=== PATIENT | female | born 1940 | race Caucasian/White ===

== ENCOUNTER → 2018-01-16 | Outpatient (CLI) | payer MEDICARE, OTHER ==
[~2018-01-16] MED LIST: ALEN70 PO; AMIT10 PO; AMLO5 PO; ASPI81CH PO; CALCAVITDA PO; CALCIUM; CEPH500 PO; CIPR500 PO; CLOP75 PO; Calcium Glucon500 MG PO; DOCU100 PO; ENSURE PO; ERGO50000 PO; HYDACE10B PO; HYDACE5 PO; IBUP600 PO; LEVFLO500 PO; LORA10ER PO; MAGCIT300 PO; METO25ER PO; MOM PO; NAPR500 PO; OXYC5 PO; PHENA200 PO; PROACE100 PO; Percocet 5-3251 EACH PO; RANI150 PO; RXOXYACE PO; RXPHEN200 PO; SIMV40 PO; SULTRIDS PO; TRAM50 PO; VALA500 PO; Valium5 MG PO; WALKER USE
[2018-01-16 10:49] LABS: Appearance, Urine Cloudy (Clear); Bilirubin, Urine Neg (Neg); Blood, Urine Neg (Neg); Color, Urine Yellow (P-Yellow); Glucose Qualitative, Urine Neg (Normal); Ketones, Urine Neg (Neg); Leukocyte Esterase, Urine Neg (Neg); Nitrite, Urine Pos (Neg); Protein, Urine Neg (Neg); Specific Gravity, Urine 1.015 (1.003-1.022); Urobilinogen, Urine NORM (Normal); pH, Urine 6.5 (5.0-8.0)
[2018-01-16 10:57] LABS: Bacteria Few /hpf; Red Blood Cells, Urine Not Seen /hpf (0-2); Squamous Epithelial Cells Rare /hpf (Few); White Blood Cells, Urine Not Seen /hpf (0-5)
== END | disposition home or self-care (01) ==
LOC: LAB EV 08:00
PROVIDERS: Physician Assistant
DX: R30.0 Dysuria (principal)
CPT/HCPCS: 81001; 87077; 87086; 87186

== ENCOUNTER 2018-04-06 14:50 | Inpatient (IN) | payer MEDICARE, OTHER ==
[~2018-04-06] VITALS: Ht 152.4 cm; Wt 42.6 kg
[~2018-04-06 14:50] MED LIST changes: +CHOL10002 PO; -ERGO50000 PO; +LORATADINE PO
[2018-04-06 15:31] LABS: Influenza A Negative (NEGATIVE); Influenza B Negative (NEGATIVE)
[2018-04-06 15:43] LABS: BASOPHILS ABSOLUTE AUTO 0.03 K/mm3 (0.00-0.23); BASOPHILS PERCENT AUTO 0 % (0-2); EOSINOPHILS PERCENT AUTO 0 % (0-6); Hematocrit 43.4 % (33.0-51.0); Hemoglobin 14.4 g/dL (11.5-16.0); IMMATURE GRAN ABSOLUTE AUTO 0.03 K/mm3 (0.00-0.10); IMMATURE GRAN PERCENT AUTO 0 % (0-1); LYMPHOCYTES ABSOLUTE AUTO 0.47 K/mm3 (0.84-5.20); LYMPHOCYTES PERCENT AUTO 4 % (21-46); MONOCYTES ABSOLUTE AUTO 0.95 K/mm3 (0.16-1.47); MONOCYTES PERCENT AUTO 9 % (4-13); Mean Corpuscular HGB Conc 33.2 g/dL (31.5-36.5); Mean Corpuscular Volume 93 fL (80-100); Mean Platelet Volume 10.3 fL (9.1-12.4); NEUTROPHILS ABSOLUTE AUTO 9.53 K/mm3 (1.96-9.15); NEUTROPHILS PERCENT AUTO 87 % (41-73); Platelet Count 121 K/mm3 (150-400); RDW Coefficient Variation 14.1 % (11.7-14.2); RDW Standard Deviation 48.6 fL (35.1-46.3); Red Blood Cell Count 4.65 M/mm3 (3.80-5.20); White Blood Cell Count 11.01 K/mm3 (4.00-11.30)
[2018-04-06 15:59] LABS: Alanine Aminotransfer (ALT/SGP 17 U/L (12-78); Albumin/Globulin Ratio 0.7 (0.8-1.8); Alk Phos 90 U/L (50-136); Anion Gap 11 mmol/L (6-16); Aspartate Aminotrans (AST/SGOT 13 U/L (12-37); Bilirubin, Total 1.4 mg/dL (0.1-1.0); Blood Urea Nitrogen 14 mg/dL (8-24); Bun/Creatinine Ratio 15.6 (12.0-20.0); CO2, Blood 22 mmol/L (21-32); Calcium, Blood 9.7 mg/dL (8.5-10.1); Chloride, Blood 101 mmol/L (98-108); Globulin, Blood 4.2 g/dL (2.2-4.0); Glomerular Filtration Rate >60 (60-); Glucose, Blood 119 mg/dL (70-99); Potassium, Blood 3.9 mmol/L (3.5-5.5); Sodium, Blood 134 mmol/L (136-145); Total Protein, Blood 7.2 g/dL (6.4-8.2)
[2018-04-06 17:07] LABS: Source, Urine Clean Catch
[2018-04-06 17:23] LABS: Appearance, Urine Clear (Clear); Bilirubin, Urine Neg (Neg); Blood, Urine 3+ (Neg); Color, Urine Yellow (P-Yellow); Glucose Qualitative, Urine Neg (Neg); Ketones, Urine Neg (Neg); Leukocyte Esterase, Urine 3+ (Neg); Nitrite, Urine Pos (Neg); Protein, Urine 2+ (Neg); Specific Gravity, Urine 1.015 (1.003-1.022); Urobilinogen, Urine NORM (Normal)
[2018-04-06 17:33] LABS: Bacteria Many /hpf; Red Blood Cells, Urine 0-2 /hpf (0-2); Squamous Epithelial Cells Rare /hpf (Few)
--- NOTE | 2018-04-06 21:37 | NUR ---
CHANGE IN PT *LATE ENTRY* ROUGHLY @2052 I CAME INTO PT ROOM SHE WAS SHIVERING, DIAPHORETIC, & MORE CONFUSED THAN EARLIER THIS EVENING. SHE WAS UNAWARE TO WHY SHE WAS IN THE HOSPITAL BUT COULD STATE NAME, MONTH, AND WHERE SHE WAS. SHE REPORTED FEELING AGITATED, CONFUSED & RESTLESS. VEW SCORE WAS A 4. APICAL HR 118, BP 149/77, TEMP 99.9 & RR 18. PT WAS ALSO VERY WEAK & UNABLE TO DIAMOND PICKER ONTO WATER CUP OR MEDICATION CUP. NOTIFIED DANIELLE ROUGHLY @ 2129 OF CHANGE IN PT CONDITION. HE ORDERED BOLUS LR & TELE FOR THE MOMENT. CAME BACK INTO ROOM TO RECHECK VITALS & VEW SCORE IS NOW A 2.
--- NOTE | 2018-04-07 04:41 | NUR ---
SHIFT SUMMARY ROUGHLY AROUND 2129 I WENT INTO PTS ROOM & PT WAS MORE CONFUSED, DIAPHORETIC, AGITATED & RESTLESS THAN WHEN I INITIALLY MET PT @BEGINNING OF SHIFT, SEE PREVIOUS NOTE. THIS AM PT REPORTS SHE SLEPT WELL. AOX4. DENIES SOB, N/V OR ANY PAIN AT THIS TIME. PT IS CLAMMY & DIAPHORETIC W/O FEVER. BP THIS AM IS 88/49 BUT PT WAS SLEEPING JUST BEFORE IT WAS CHECKED & DENIES ANY DISCOMFORT, PLUS VEW SCORE IS ONLY 1, HOWEVER WILL RECHECK BP. CALL LIGHT IS IN REACH & BED IS IN LOWEST POSITION.
[2018-04-07 04:57] LABS: BASOPHILS ABSOLUTE AUTO 0.02 K/mm3 (0.00-0.23); BASOPHILS PERCENT AUTO 0 % (0-2); EOSINOPHILS PERCENT AUTO 0 % (0-6); Hematocrit 35.2 % (33.0-51.0); Hemoglobin 11.7 g/dL (11.5-16.0); IMMATURE GRAN ABSOLUTE AUTO 0.08 K/mm3 (0.00-0.10); IMMATURE GRAN PERCENT AUTO 1 % (0-1); LYMPHOCYTES ABSOLUTE AUTO 0.71 K/mm3 (0.84-5.20); LYMPHOCYTES PERCENT AUTO 7 % (21-46); MONOCYTES PERCENT AUTO 10 % (4-13); Mean Corpuscular HGB 30.7 pg (26.0-34.0); Mean Corpuscular HGB Conc 33.2 g/dL (31.5-36.5); Mean Corpuscular Volume 92 fL (80-100); Mean Platelet Volume 10.7 fL (9.1-12.4); NEUTROPHILS ABSOLUTE AUTO 8.75 K/mm3 (1.96-9.15); NEUTROPHILS PERCENT AUTO 83 % (41-73); Platelet Count 101 K/mm3 (150-400); RDW Coefficient Variation 14.2 % (11.7-14.2); RDW Standard Deviation 48.1 fL (35.1-46.3); Red Blood Cell Count 3.81 M/mm3 (3.80-5.20); White Blood Cell Count 10.56 K/mm3 (4.00-11.30)
[2018-04-07 05:16] LABS: Bun/Creatinine Ratio 16.4 (12.0-20.0); Calcium, Blood 8.8 mg/dL (8.5-10.1); Creatinine, Blood 0.98 mg/dL (0.40-1.00); Potassium, Blood 3.8 mmol/L (3.5-5.5)
--- NOTE | 2018-04-07 18:04 | NUR ---
SUMMARY PT AWAKE IN BED WATCHING TV, PT JUST FINISHED HER DINNER, PT HAS BEEN PLEASANT AND COOPERATIVE WITH CARE, INDEPENDENT IN THE ROOM, PT HAS HAD SEVERAL FAMILY MEMBERS COME TO VISIT TODAY, PT STATES SHE FEELS BETTER THAN WHEN ADMITTED, VSS, NO ACUTE CHANGES, WILL CONT TO MONITOR
--- NOTE | 2018-04-08 04:33 | NUR ---
SHIFT SUMMARY NO ACUTE CHANGES NOTED SO FAR THIS SHIFT. PT IS ALERT, ORIENTED, PLEASENT AND COOPERATIVE WITH CARE. 1 PERSON STAND BY ASSIST TO BR FOR TOILETING. PT DID INITIALLY VOICE THAT SHE WAS HAVING A DIFFICULT TIME FALLING ASLEEP. WE CLOSED HER DOOR AND SHE WAS ABLE TO FALL ASLEEP QUICKLY. SHE HAS APPEARED TO SLEEP COMFORTABLY MOST OF THE NIGHT, EASILY AWAKENS FOR CARE, NO APPARENT SIGNS OF ACUTE DISTRESS. ABLE TO MAKE NEEDS KNOWN AND CALL LIGHT IN REACH.
--- NOTE | 2018-04-08 10:34 | NUR ---
pt says she is to weak and tired.
--- NOTE | 2018-04-09 05:13 | NUR ---
SHIFT SUMMARY A/O X4, ABLE TO MAKE NEEDS KNOWN. COOPERATIVE WITH CARE. CALLS AND ANSWERS QUESTIONS APPROPRIATELY. NO C/O PAIN/DISCOMFORT. APPEARED TO REST MOST OF SHIFT. VSS/AFEBRILE. NO ACUTE CHANGES OVERNIGHT. BED IN LOWEST POSITION. CALL LIGHT AND BELONGINGS WITHIN REACH. WCTM. REPORT TO ONCOMING RN.
[2018-04-09] MEDS ORDERED: LEVO750 PO (15:29)
[2018-04-09] MEDS ORDERED: CINA30 PO (15:30)
--- NOTE | 2018-04-09 17:57 | NUR ---
DISCHARGE NOTE PT DISCHARGED AT 1620 HRS. PT PROVIDED WITH HARDCOPY AND VERBAL INFORMATION ABOUT DIAGNOSES, MEDICATIONS, FOLLOW UP INSTRUCTIONS. PT'S PRESCRIPTIONS FAXED TO PREFERED PHARMACY. IV DC'D WNL. PT DRESSED WITH HER SISTER'S ASSISTANCE. PT ESCORTED OUT VIA WHEELCHAIR BY SHARE HOLDER. PT HAD NO FURTHER QUESTIONS.
== END 2018-04-09 16:27 | disposition home or self-care (01) | DRG 872 ==
LOC: ER 14:50 → MEDS 14:51
PROVIDERS: Physician Assistant; ADMIT Hospitalist
DX: A41.51 Sepsis due to Escherichia coli [E. coli] (principal); N39.0 Urinary tract infection, site not specified; R65.20 Severe sepsis without septic shock; I95.9 Hypotension, unspecified; E05.00 Thyrotoxicosis with diffuse goiter without thyrotoxic crisis or storm; N18.3 Chronic kidney disease, stage 3 (moderate); R63.0 Anorexia; E21.0 Primary hyperparathyroidism; I12.9 Hypertensive chronic kidney disease with stage 1 through stage 4 chronic kidney disease, or unspecified chronic kidney disease; E78.5 Hyperlipidemia, unspecified; Z79.899 Other long term (current) drug therapy; Z86.73 Personal history of transient ischemic attack (TIA), and cerebral infarction without residual deficits; Z79.01 Long term (current) use of anticoagulants; F17.210 Nicotine dependence, cigarettes, uncomplicated; Z28.20 Immunization not carried out because of patient decision for unspecified reason
CPT/HCPCS: 36415; 74176; 80048; 80053; 81001; 83605; 85025; 87040; 87077; 87086; 87186; 87804; 93005; 93010; 96361; 96365; 96375; 99285-25; G0378; J0696; J0744; J1650; J2405; J7030; J7120

== ENCOUNTER → 2018-05-07 | Outpatient (CLI) | payer MEDICARE, OTHER ==
[~2018-05-07] MED LIST changes: +CINA30 PO; +LEVO750 PO
[2018-05-07 12:34] LABS: Source, Urine Clean Catch
[2018-05-07 12:38] LABS: Appearance, Urine Clear (Clear); Bilirubin, Urine Neg (Neg); Blood, Urine Neg (Neg); Color, Urine Yellow (P-Yellow); Glucose Qualitative, Urine Neg (Normal); Ketones, Urine Neg (Neg); Leukocyte Esterase, Urine Neg (Neg); Nitrite, Urine Neg (Neg); Protein, Urine Neg (Neg); Urobilinogen, Urine NORM (Normal)
[2018-05-07 14:42] LABS: Protein, Urine Random 17.9 mg/dL (0.0-11.9)
== END | disposition home or self-care (01) ==
LOC: LAB EV 10:09 → EDSTATUS 10:19
PROVIDERS: Internal Medicine
DX: N18.2 Chronic kidney disease, stage 2 (mild) (principal); E87.6 Hypokalemia
CPT/HCPCS: 81003; 82570; 84156

== ENCOUNTER 2018-06-27 10:48 | Inpatient (IN) | payer MEDICARE, OTHER ==
[~2018-06-27] VITALS: Ht 152.4 cm; Wt 44.3 kg
[2018-06-27] MEDS ORDERED: POTCHL10ER PO (11:29)
[2018-06-27 11:36] LABS: BASOPHILS ABSOLUTE AUTO 0.05 K/mm3 (0.00-0.23); BASOPHILS PERCENT AUTO 0 % (0-2); EOSINOPHILS ABSOLUTE AUTO 0.05 K/mm3 (0.00-0.68); EOSINOPHILS PERCENT AUTO 0 % (0-6); Hematocrit 44.8 % (33.0-51.0); Hemoglobin 14.5 g/dL (11.5-16.0); IMMATURE GRAN ABSOLUTE AUTO 0.03 K/mm3 (0.00-0.10); IMMATURE GRAN PERCENT AUTO 0 % (0-1); LYMPHOCYTES ABSOLUTE AUTO 1.32 K/mm3 (0.84-5.20); LYMPHOCYTES PERCENT AUTO 11 % (21-46); MONOCYTES ABSOLUTE AUTO 0.82 K/mm3 (0.16-1.47); MONOCYTES PERCENT AUTO 7 % (4-13); Mean Corpuscular HGB 30.3 pg (26.0-34.0); Mean Corpuscular HGB Conc 32.4 g/dL (31.5-36.5); Mean Corpuscular Volume 94 fL (80-100); Mean Platelet Volume 9.9 fL (9.1-12.4); NEUTROPHILS ABSOLUTE AUTO 10.12 K/mm3 (1.96-9.15); NEUTROPHILS PERCENT AUTO 82 % (41-73); Platelet Count 189 K/mm3 (150-400); RDW Standard Deviation 52.5 fL (35.1-46.3); Red Blood Cell Count 4.79 M/mm3 (3.80-5.20); White Blood Cell Count 12.39 K/mm3 (4.00-11.30)
[2018-06-27 11:57] LABS: Alanine Aminotransfer (ALT/SGP 18 U/L (12-78); Albumin, Blood 3.4 g/dL (3.4-5.0); Albumin/Globulin Ratio 0.8 (0.8-1.8); Alk Phos 87 U/L (50-136); Anion Gap 8 mmol/L (6-16); Aspartate Aminotrans (AST/SGOT 18 U/L (12-37); Bilirubin, Total 1.5 mg/dL (0.1-1.0); Blood Urea Nitrogen 15 mg/dL (8-24); Bun/Creatinine Ratio 20.5 (12.0-20.0); CO2, Blood 25 mmol/L (21-32); Calcium, Blood 9.9 mg/dL (8.5-10.1); Chloride, Blood 105 mmol/L (98-108); Creatinine, Blood 0.73 mg/dL (0.40-1.00); Globulin, Blood 4.1 g/dL (2.2-4.0); Glomerular Filtration Rate >60 (60-); Glucose, Blood 95 mg/dL (70-99); Potassium, Blood 4.2 mmol/L (3.5-5.5); Sodium, Blood 138 mmol/L (136-145); Total Protein, Blood 7.5 g/dL (6.4-8.2)
[2018-06-27] MEDS ORDERED: ALLERGY MEDICAT25 MG PO (13:59)
[2018-06-27 17:32] LABS: Influenza A Negative (NEGATIVE); Influenza B Negative (NEGATIVE)
[2018-06-27 17:34] LABS: PCO2 Arterial 35.6 mmHg (35-45); PO2 Arterial 59.3 mmHg (80-100); pH Blood Arterial 7.39 (7.35-7.45)
--- NOTE | 2018-06-27 19:13 | NUR ---
NO C/O AT THIS TIME. DENIES SOB OR OTHER C/O. TOLERATING PO WELL. UP INDEPENDENTLY IN ROOM, STEADY. DISCUSSED PLAN OF CARE WITH PATIENT. FAMILY IN TO SEE.
[2018-06-27 19:31] LABS: Source, Urine Clean Catch
[2018-06-27 19:48] LABS: Bilirubin, Urine Neg (Neg); Blood, Urine 2+ (Neg); Glucose Qualitative, Urine 2+ (Neg); Ketones, Urine Neg (Neg); Leukocyte Esterase, Urine Neg (Neg); Nitrite, Urine Neg (Neg); Protein, Urine Neg (Neg); Urobilinogen, Urine NORM (Normal)
[2018-06-27 20:48] LABS: Appearance, Urine Hazy (Clear); Bacteria Mod /hpf; Color, Urine Yellow (P-Yellow); Squamous Epithelial Cells Few /hpf (Few); White Blood Cells, Urine 0-2 /hpf (0-5)
[2018-06-27 20:49] LABS: Amorphous Light (0-Heavy)
--- NOTE | 2018-06-28 03:52 | NUR ---
NOC SHIFT SUMMARY PT HAS BEEN PLEASANT, TALKATIVE, AND COOPERATIVE WITH CARE THIS NIGHT. NO CHANGES IN S.S NOTED. PT HAS NOT VOICED ANY CONCERNS. VSS. APPEARS IN NO ACUTE DISTRESS. CURRENLY SLEEPING RESTFULLY WITH 2LNC. RESP HAVE BEEN EVEN AND UNLABORED. WILL CONTINUE TO MONITOR.
[2018-06-28 04:45] LABS: BASOPHILS ABSOLUTE AUTO 0.01 K/mm3 (0.00-0.23); BASOPHILS PERCENT AUTO 0 % (0-2); EOSINOPHILS PERCENT AUTO 0 % (0-6); Hematocrit 41.8 % (33.0-51.0); Hemoglobin 13.7 g/dL (11.5-16.0); IMMATURE GRAN ABSOLUTE AUTO 0.04 K/mm3 (0.00-0.10); IMMATURE GRAN PERCENT AUTO 0 % (0-1); LYMPHOCYTES ABSOLUTE AUTO 0.57 K/mm3 (0.84-5.20); LYMPHOCYTES PERCENT AUTO 5 % (21-46); MONOCYTES PERCENT AUTO 2 % (4-13); Mean Corpuscular HGB 30.1 pg (26.0-34.0); Mean Corpuscular HGB Conc 32.8 g/dL (31.5-36.5); Mean Corpuscular Volume 92 fL (80-100); Mean Platelet Volume 10.4 fL (9.1-12.4); NEUTROPHILS ABSOLUTE AUTO 10.49 K/mm3 (1.96-9.15); NEUTROPHILS PERCENT AUTO 93 % (41-73); Platelet Count 199 K/mm3 (150-400); RDW Coefficient Variation 14.7 % (11.7-14.2); RDW Standard Deviation 50.2 fL (35.1-46.3); Red Blood Cell Count 4.55 M/mm3 (3.80-5.20); White Blood Cell Count 11.31 K/mm3 (4.00-11.30)
[2018-06-28 05:02] LABS: Anion Gap 8 mmol/L (6-16); Blood Urea Nitrogen 25 mg/dL (8-24); Bun/Creatinine Ratio 28.5 (12.0-20.0); CO2, Blood 25 mmol/L (21-32); Calcium, Blood 10.4 mg/dL (8.5-10.1); Chloride, Blood 105 mmol/L (98-108); Creatinine, Blood 0.88 mg/dL (0.40-1.00); Glomerular Filtration Rate >60 (60-); Glucose, Blood 191 mg/dL (70-99); Potassium, Blood 3.8 mmol/L (3.5-5.5); Sodium, Blood 138 mmol/L (136-145)
[2018-06-28] MEDS ORDERED: Loratadine10 MG PO (09:57)
--- NOTE | 2018-06-28 18:39 | NUR ---
SHIFT SUMMARY OX3; TOLERATING ROOM AIR WELL AT TIMES AND 1L NC WITH ACTIVITY. LUNG SOUNDS IMPROVING. INTERMITTENT COUGH SCANT SPUTUM. STANDBY ASSIST. HR 110-120'S. POSSIBLE DC IN A.M.
--- NOTE | 2018-06-29 05:35 | NUR ---
Rn summary: Patient is alert and oriented. Pt breathsounds with no wheezing, just sl courseness in bases. Pt has been on room air and sats have been 92-93%. Pt had difficulty with gong to sleep. She also has sore areas in her mouth where her new dentures have rubbed. Pt given xylocaine jelly which did help, and restaril 15mg. She slept after 0200. Pt llives with her son and plans are for her to be discharged home today. Call light in reach. Condition stable.
[2018-06-29] MEDS ORDERED: AZIT500 PO (13:56)
[2018-06-29] MEDS ORDERED: ROBITUSSIN COU237 ML PO (14:01)
[2018-06-29] MEDS ORDERED: NICO21TP TOP (14:02)
[2018-06-29] MEDS ORDERED: PRED20 PO (14:03)
[2018-06-29] MEDS ORDERED: ALBU90OI INH (14:04)
[2018-06-29] MEDS ORDERED: TIOT18 INH (14:04)
[2018-06-29] MEDS ORDERED: CEFD300 PO (14:04)
[2018-06-29] MEDS ORDERED: BUDE6HFA INH (14:04)
[2018-06-29] MEDS ORDERED: METO50ER PO (14:05)
--- NOTE | 2018-06-29 18:05 | NUR ---
SUMMARY/DISCHARGE PT DISCHARGED TO HOME, PT VERBALIZED UNDERSTANDING OF DISCHARGE INSTRUCTIONS REGARDING FOLLOW UP AND MEDICATIONS, PT TAKEN OUT SAFELY VIA WHEELCHAIR
== END 2018-06-29 17:39 | disposition home or self-care (01) | DRG 189 ==
LOC: ER 10:48 → MEDS 10:49 → ER 14:00 → MEDS 15:38 → ENPENDDIS 06-29 14:51 → MEDS 06-29 17:39
PROVIDERS: Emergency Medicine; Internal Medicine; ADMIT Internal Medicine
DX: J96.01 Acute respiratory failure with hypoxia (principal); J44.1 Chronic obstructive pulmonary disease with (acute) exacerbation; J44.0 Chronic obstructive pulmonary disease with (acute) lower respiratory infection; J20.9 Acute bronchitis, unspecified; E78.5 Hyperlipidemia, unspecified; I65.29 Occlusion and stenosis of unspecified carotid artery; I12.9 Hypertensive chronic kidney disease with stage 1 through stage 4 chronic kidney disease, or unspecified chronic kidney disease; N18.3 Chronic kidney disease, stage 3 (moderate); K21.9 Gastro-esophageal reflux disease without esophagitis; M81.0 Age-related osteoporosis without current pathological fracture; F17.210 Nicotine dependence, cigarettes, uncomplicated; Z86.73 Personal history of transient ischemic attack (TIA), and cerebral infarction without residual deficits; Z79.02 Long term (current) use of antithrombotics/antiplatelets; Z79.899 Other long term (current) drug therapy
CPT/HCPCS: 36415; 36600; 71046; 80048; 80053; 81001; 82803; 83880; 85025; 87086; 87804; 93005; 93010; 94640; 94644; 94760; 96365; 96372; 96374; 96375; 96376; 99285-25; G0378; J0696; J1650; J1940; J2930

== ENCOUNTER → 2018-07-02 | Outpatient (CLI) | payer MEDICARE, OTHER ==
[~2018-07-02] MED LIST changes: +ALBU90OI INH; +ALLERGY MEDICAT25 MG PO; +AZIT500 PO; +BUDE6HFA INH; +CEFD300 PO; +Loratadine10 MG PO; +METO50ER PO; +NICO21TP TOP; +POTCHL10ER PO; +PRED20 PO; +ROBITUSSIN COU237 ML PO; +TIOT18 INH
[2018-07-02 09:27] LABS: Bun/Creatinine Ratio 13.2 (12.0-20.0); Calcium, Blood 9.3 mg/dL (8.5-10.1); Creatinine, Blood 0.91 mg/dL (0.40-1.00); Potassium, Blood 3.9 mmol/L (3.5-5.5)
[2018-07-02 09:30] LABS: BASOPHILS ABSOLUTE AUTO 0.02 K/mm3 (0.00-0.23); BASOPHILS PERCENT AUTO 0 % (0-2); EOSINOPHILS ABSOLUTE AUTO 0.13 K/mm3 (0.00-0.68); EOSINOPHILS PERCENT AUTO 2 % (0-6); Hematocrit 39.9 % (33.0-51.0); Hemoglobin 13.5 g/dL (11.5-16.0); IMMATURE GRAN ABSOLUTE AUTO 0.07 K/mm3 (0.00-0.10); IMMATURE GRAN PERCENT AUTO 1 % (0-1); LYMPHOCYTES ABSOLUTE AUTO 0.85 K/mm3 (0.84-5.20); LYMPHOCYTES PERCENT AUTO 12 % (21-46); MONOCYTES ABSOLUTE AUTO 0.69 K/mm3 (0.16-1.47); MONOCYTES PERCENT AUTO 10 % (4-13); Mean Corpuscular HGB 30.4 pg (26.0-34.0); Mean Corpuscular HGB Conc 33.8 g/dL (31.5-36.5); Mean Corpuscular Volume 90 fL (80-100); NEUTROPHILS ABSOLUTE AUTO 5.27 K/mm3 (1.96-9.15); NEUTROPHILS PERCENT AUTO 75 % (41-73); RDW Coefficient Variation 14.8 % (11.7-14.2); RDW Standard Deviation 48.8 fL (35.1-46.3); Red Blood Cell Count 4.44 M/mm3 (3.80-5.20); White Blood Cell Count 7.03 K/mm3 (4.00-11.30)
[2018-07-02 10:10] LABS: Platelet Count 204 K/mm3 (150-400)
== END | disposition home or self-care (01) ==
LOC: LAB SHORT 09:18 → LAB EV 09:18
PROVIDERS: Physician Assistant
DX: J96.01 Acute respiratory failure with hypoxia (principal)
CPT/HCPCS: 80048; 85025

== ENCOUNTER 2018-12-21 10:40 | Emergency (ER) | payer MEDICARE, OTHER ==
[~2018-12-21] VITALS: Ht 152.4 cm; Wt 45.4 kg
[2018-12-21 11:11] LABS: BASOPHILS ABSOLUTE AUTO 0.05 K/mm3 (0.00-0.23); BASOPHILS PERCENT AUTO 1 % (0-2); EOSINOPHILS ABSOLUTE AUTO 0.18 K/mm3 (0.00-0.68); EOSINOPHILS PERCENT AUTO 4 % (0-6); Hematocrit 45.2 % (33.0-51.0); Hemoglobin 14.7 g/dL (11.5-16.0); IMMATURE GRAN ABSOLUTE AUTO 0.01 K/mm3 (0.00-0.10); IMMATURE GRAN PERCENT AUTO 0 % (0-1); LYMPHOCYTES ABSOLUTE AUTO 1.66 K/mm3 (0.84-5.20); LYMPHOCYTES PERCENT AUTO 33 % (21-46); MONOCYTES ABSOLUTE AUTO 0.46 K/mm3 (0.16-1.47); MONOCYTES PERCENT AUTO 9 % (4-13); Mean Corpuscular HGB 30.6 pg (26.0-34.0); Mean Corpuscular HGB Conc 32.5 g/dL (31.5-36.5); Mean Corpuscular Volume 94 fL (80-100); NEUTROPHILS ABSOLUTE AUTO 2.75 K/mm3 (1.96-9.15); NEUTROPHILS PERCENT AUTO 54 % (41-73); Platelet Count 206 K/mm3 (150-400); RDW Coefficient Variation 14.5 % (11.7-14.2); RDW Standard Deviation 50.6 fL (35.1-46.3); White Blood Cell Count 5.11 K/mm3 (4.00-11.30)
[2018-12-21 11:33] LABS: Alanine Aminotransfer (ALT/SGP 15 U/L (12-78); Albumin, Blood 3.3 g/dL (3.4-5.0); Albumin/Globulin Ratio 0.8 (0.8-1.8); Alk Phos 119 U/L (50-136); Anion Gap 5 mmol/L (6-16); Aspartate Aminotrans (AST/SGOT 13 U/L (12-37); Bilirubin, Total 0.9 mg/dL (0.1-1.0); Blood Urea Nitrogen 11 mg/dL (8-24); Bun/Creatinine Ratio 14.8 (12.0-20.0); CO2, Blood 28 mmol/L (21-32); Calcium, Blood 10.2 mg/dL (8.5-10.1); Chloride, Blood 108 mmol/L (98-108); Creatinine, Blood 0.75 mg/dL (0.40-1.00); Globulin, Blood 4.3 g/dL (2.2-4.0); Glomerular Filtration Rate >60 (60-); Glucose, Blood 112 mg/dL (70-99); Potassium, Blood 3.9 mmol/L (3.5-5.5); Sodium, Blood 141 mmol/L (136-145); Total Protein, Blood 7.6 g/dL (6.4-8.2); Troponin I <0.015 ng/mL (0.000-0.040)
[2018-12-21 12:29] LABS: Appearance, Urine Clear (Clear); Bilirubin, Urine Neg (Neg); Blood, Urine Neg (Neg); Color, Urine Yellow (P-Yellow); Glucose Qualitative, Urine Neg (Neg); Ketones, Urine Neg (Neg); Leukocyte Esterase, Urine Neg (Neg); Nitrite, Urine Neg (Neg); Protein, Urine Neg (Neg); Specific Gravity, Urine 1.005 (1.003-1.022); Urobilinogen, Urine NORM (Normal)
[2018-12-21] MEDS ORDERED: Toprol Xl25 MG PO (12:33)
[2018-12-21] MEDS ORDERED: Medi-Meclizine25 MG PO (12:45)
== END 2018-12-21 13:24 | disposition home or self-care (01) ==
LOC: ER 10:40
PROVIDERS: Emergency Medicine
DX: R42 Dizziness and giddiness (principal); F17.210 Nicotine dependence, cigarettes, uncomplicated; Z86.73 Personal history of transient ischemic attack (TIA), and cerebral infarction without residual deficits; Z79.899 Other long term (current) drug therapy; Z88.5 Allergy status to narcotic agent
CPT/HCPCS: 36415; 70450; 71046; 80053; 81003; 84484; 85025; 93005; 93010; 96361; 96374; 99284-25; J2405; J7030

== ENCOUNTER 2019-03-04 22:29 | Emergency (ER) | payer MEDICARE, OTHER ==
[~2019-03-04] VITALS: Ht 152.4 cm; Wt 49.9 kg
[~2019-03-04 22:29] MED LIST changes: +Medi-Meclizine25 MG PO; +Toprol Xl25 MG PO
== END 2019-03-05 02:15 | disposition home or self-care (01) ==
LOC: ER 22:29
DX: R51 Headache (principal); F17.210 Nicotine dependence, cigarettes, uncomplicated; Z86.73 Personal history of transient ischemic attack (TIA), and cerebral infarction without residual deficits
CPT/HCPCS: 70450; 96372; 99283-25; J1885; Q0163

== ENCOUNTER → 2019-07-05 | Outpatient (CLI) | payer MEDICARE, OTHER | END | disposition home or self-care (01) | LOC: LAB EV 11:51 → LAB SHORT 11:51 | DX: N39.0 Urinary tract infection, site not specified (principal) | CPT/HCPCS: 87077; 87086; 87186 ==

== ENCOUNTER 2019-12-10 20:29 | Emergency (ER) | payer MEDICARE, OTHER ==
[~2019-12-10] VITALS: Ht 152.4 cm; Wt 44.0 kg
[2019-12-10 21:31] LABS: BASOPHILS ABSOLUTE AUTO 0.04 K/mm3 (0.00-0.23); BASOPHILS PERCENT AUTO 1 % (0-2); EOSINOPHILS ABSOLUTE AUTO 0.09 K/mm3 (0.00-0.68); EOSINOPHILS PERCENT AUTO 2 % (0-6); Hematocrit 47.7 % (33.0-51.0); Hemoglobin 16.1 g/dL (11.5-16.0); IMMATURE GRAN ABSOLUTE AUTO 0.01 K/mm3 (0.00-0.10); IMMATURE GRAN PERCENT AUTO 0 % (0-1); LYMPHOCYTES ABSOLUTE AUTO 1.55 K/mm3 (0.84-5.20); LYMPHOCYTES PERCENT AUTO 29 % (21-46); MONOCYTES ABSOLUTE AUTO 0.44 K/mm3 (0.16-1.47); MONOCYTES PERCENT AUTO 8 % (4-13); Mean Corpuscular HGB 32.8 pg (26.0-34.0); Mean Corpuscular HGB Conc 33.8 g/dL (31.5-36.5); Mean Corpuscular Volume 97 fL (80-100); NEUTROPHILS ABSOLUTE AUTO 3.24 K/mm3 (1.96-9.15); NEUTROPHILS PERCENT AUTO 60 % (41-73); Platelet Count 170 K/mm3 (150-400); RDW Coefficient Variation 14.6 % (11.7-14.2); RDW Standard Deviation 51.8 fL (35.1-46.3); Red Blood Cell Count 4.91 M/mm3 (3.80-5.20); White Blood Cell Count 5.37 K/mm3 (4.00-11.30)
[2019-12-10 21:50] LABS: Albumin, Blood 3.7 g/dL (3.4-5.0); Bilirubin, Total 1.5 mg/dL (0.1-1.0); Calcium, Blood 10.5 mg/dL (8.5-10.1); Globulin, Blood 3.8 g/dL (2.2-4.0); Potassium, Blood 4.3 mmol/L (3.5-5.5); Total Protein, Blood 7.5 g/dL (6.4-8.2)
[2019-12-10 23:59] LABS: Source, Urine Clean Catch
[2019-12-11 00:02] LABS: Appearance, Urine Hazy (Clear); Bilirubin, Urine 1+ (Neg); Blood, Urine 1+ (Neg); Color, Urine Yellow (P-Yellow); Glucose Qualitative, Urine Neg (Neg); Ketones, Urine 1+ (Neg); Leukocyte Esterase, Urine 3+ (Neg); Nitrite, Urine Neg (Neg); Protein, Urine 2+ (Neg); Urobilinogen, Urine 2+ (Normal)
[2019-12-11 00:09] LABS: Bacteria Many /hpf; Red Blood Cells, Urine Rare /hpf (0-2); Squamous Epithelial Cells Few /hpf (Few); White Blood Cells, Urine TNTC /hpf (0-5); Yeast/Fungi Urine Few /hpf
[2019-12-11] MEDS ORDERED: CEFP200 PO (00:36)
== END 2019-12-11 01:00 | disposition home or self-care (01) ==
LOC: ER 20:29
PROVIDERS: Emergency Medicine; Physician Assistant
DX: N39.0 Urinary tract infection, site not specified (principal); Z88.5 Allergy status to narcotic agent; Z79.899 Other long term (current) drug therapy; J44.9 Chronic obstructive pulmonary disease, unspecified; K21.9 Gastro-esophageal reflux disease without esophagitis; Z86.73 Personal history of transient ischemic attack (TIA), and cerebral infarction without residual deficits; I12.9 Hypertensive chronic kidney disease with stage 1 through stage 4 chronic kidney disease, or unspecified chronic kidney disease; N18.3 Chronic kidney disease, stage 3 (moderate); E78.5 Hyperlipidemia, unspecified; F17.210 Nicotine dependence, cigarettes, uncomplicated
CPT/HCPCS: 36415; 71046; 80053; 81001; 83690; 85025; 96361; 96365; 99285-25; J0696; J7030

== ENCOUNTER → 2020-05-29 | Outpatient (CLI) | payer MEDICARE, OTHER ==
[~2020-05-29] MED LIST changes: +CEFP200 PO
[2020-05-29 12:00] LABS: BASOPHILS ABSOLUTE AUTO 0.07 K/mm3 (0.00-0.23); BASOPHILS PERCENT AUTO 1 % (0-2); EOSINOPHILS ABSOLUTE AUTO 0.43 K/mm3 (0.00-0.68); EOSINOPHILS PERCENT AUTO 8 % (0-6); Hematocrit 46.3 % (33.0-51.0); Hemoglobin 15.4 g/dL (11.5-16.0); IMMATURE GRAN ABSOLUTE AUTO 0.02 K/mm3 (0.00-0.10); IMMATURE GRAN PERCENT AUTO 0 % (0-1); LYMPHOCYTES ABSOLUTE AUTO 1.25 K/mm3 (0.84-5.20); LYMPHOCYTES PERCENT AUTO 22 % (21-46); MONOCYTES PERCENT AUTO 7 % (4-13); Mean Corpuscular HGB 31.6 pg (26.0-34.0); Mean Corpuscular HGB Conc 33.3 g/dL (31.5-36.5); Mean Corpuscular Volume 95 fL (80-100); NEUTROPHILS ABSOLUTE AUTO 3.43 K/mm3 (1.96-9.15); NEUTROPHILS PERCENT AUTO 61 % (41-73); Platelet Count 164 K/mm3 (150-400); RDW Coefficient Variation 14.8 % (11.7-14.2); RDW Standard Deviation 51.5 fL (35.1-46.3); Red Blood Cell Count 4.87 M/mm3 (3.80-5.20)
[2020-05-29 12:11] LABS: Albumin, Blood 3.6 g/dL (3.4-5.0); Albumin/Globulin Ratio 0.9 (0.8-1.8); Bun/Creatinine Ratio 10.2 (12.0-20.0); Calcium, Blood 10.7 mg/dL (8.5-10.1); Creatinine, Blood 0.98 mg/dL (0.40-1.00); Globulin, Blood 4.2 g/dL (2.2-4.0); Potassium, Blood 3.7 mmol/L (3.5-5.5); Total Protein, Blood 7.8 g/dL (6.4-8.2); Uric Acid, Blood 4.3 mg/dL (2.6-6.0)
== END | disposition home or self-care (01) ==
LOC: LAB SHORT 11:55 → PLD 11:55
PROVIDERS: General Practice
DX: M79.671 Pain in right foot (principal)
CPT/HCPCS: 80053; 84550; 85025; 85651

== ENCOUNTER 2021-04-12 18:36 | Inpatient (IN) | payer MEDICARE, OTHER ==
[~2021-04-12] VITALS: Ht 152.4 cm; Wt 40.3 kg
[2021-04-12 19:15] LABS: BASOPHILS ABSOLUTE AUTO 0.01 K/mm3 (0.00-0.23); BASOPHILS PERCENT AUTO 1 % (0-2); EOSINOPHILS PERCENT AUTO 0 % (0-6); Hemoglobin 14.5 g/dL (11.5-16.0); IMMATURE GRAN ABSOLUTE AUTO 0.01 K/mm3 (0.00-0.10); IMMATURE GRAN PERCENT AUTO 1 % (0-1); LYMPHOCYTES ABSOLUTE AUTO 0.51 K/mm3 (0.84-5.20); LYMPHOCYTES PERCENT AUTO 25 % (21-46); MONOCYTES ABSOLUTE AUTO 0.24 K/mm3 (0.16-1.47); MONOCYTES PERCENT AUTO 12 % (4-13); Mean Corpuscular HGB 34.4 pg (26.0-34.0); Mean Corpuscular HGB Conc 34.5 g/dL (31.5-36.5); Mean Corpuscular Volume 100 fL (80-100); Mean Platelet Volume 10.3 fL (9.1-12.4); NEUTROPHILS PERCENT AUTO 63 % (41-73); Platelet Count 87 K/mm3 (150-400); RDW Standard Deviation 54.9 fL (35.1-46.3); Red Blood Cell Count 4.22 M/mm3 (3.80-5.20); White Blood Cell Count 2.07 K/mm3 (4.00-11.30)
[2021-04-12 19:34] LABS: Albumin, Blood 3.2 g/dL (3.4-5.0); Albumin/Globulin Ratio 0.9 (0.8-1.8); Bilirubin, Total 0.5 mg/dL (0.1-1.0); Bun/Creatinine Ratio 25.9 (12.0-20.0); Calcium, Blood 8.8 mg/dL (8.5-10.1); Creatinine, Blood 0.97 mg/dL (0.40-1.00); Globulin, Blood 3.4 g/dL (2.2-4.0); Potassium, Blood 4.1 mmol/L (3.5-5.5); Total Protein, Blood 6.6 g/dL (6.4-8.2)
[2021-04-12] MEDS ORDERED: ATOR40TA PO (23:04)
[2021-04-13] MEDS ORDERED: MELA3 PO (02:10)
[2021-04-13 02:48] LABS: BASOPHILS ABSOLUTE AUTO 0.01 K/mm3 (0.00-0.23); BASOPHILS PERCENT AUTO 1 % (0-2); EOSINOPHILS PERCENT AUTO 0 % (0-6); Hematocrit 39.3 % (33.0-51.0); Hemoglobin 13.5 g/dL (11.5-16.0); IMMATURE GRAN ABSOLUTE AUTO 0.01 K/mm3 (0.00-0.10); IMMATURE GRAN PERCENT AUTO 1 % (0-1); LYMPHOCYTES ABSOLUTE AUTO 0.54 K/mm3 (0.84-5.20); LYMPHOCYTES PERCENT AUTO 28 % (21-46); MONOCYTES ABSOLUTE AUTO 0.12 K/mm3 (0.16-1.47); MONOCYTES PERCENT AUTO 6 % (4-13); Mean Corpuscular HGB Conc 34.4 g/dL (31.5-36.5); Mean Corpuscular Volume 99 fL (80-100); Mean Platelet Volume 9.6 fL (9.1-12.4); NEUTROPHILS ABSOLUTE AUTO 1.27 K/mm3 (1.96-9.15); NEUTROPHILS PERCENT AUTO 65 % (41-73); Platelet Count 73 K/mm3 (150-400); RDW Coefficient Variation 14.8 % (11.7-14.2); RDW Standard Deviation 54.2 fL (35.1-46.3); Red Blood Cell Count 3.97 M/mm3 (3.80-5.20); White Blood Cell Count 1.95 K/mm3 (4.00-11.30)
[2021-04-13 03:25] LABS: Alanine Aminotransfer (ALT/SGP 23 U/L (12-78); Albumin, Blood 2.8 g/dL (3.4-5.0); Albumin/Globulin Ratio 0.9 (0.8-1.8); Alk Phos 61 U/L (50-136); Anion Gap 8 mmol/L (6-16); Aspartate Aminotrans (AST/SGOT 42 U/L (12-37); Bilirubin, Total 0.4 mg/dL (0.1-1.0); Blood Urea Nitrogen 20 mg/dL (8-24); Bun/Creatinine Ratio 22.6 (12.0-20.0); CO2, Blood 22 mmol/L (21-32); Calcium, Blood 7.8 mg/dL (8.5-10.1); Chloride, Blood 105 mmol/L (98-108); Creatinine, Blood 0.89 mg/dL (0.40-1.00); Globulin, Blood 3.2 g/dL (2.2-4.0); Glomerular Filtration Rate >60 (60-); Glucose, Blood 87 mg/dL (70-99); Potassium, Blood 4.1 mmol/L (3.5-5.5); Sodium, Blood 135 mmol/L (136-145)
--- NOTE | 2021-04-13 05:20 | NUR ---
SHIFT SUMMARY: PT ADMITTED FROM ER AT APPROX 0200. PT A&O X4. FEBRILE UPON ARRIVAL WITH TMAX 101.2. MOST RECENT TEMP 99.5. COVID POSITIVE. REMDESIVIR GIVEN PER EMAR. LUNGS CLEAR T/O, DIMINISHED IN BASES. PT WEANED FROM 6LO2 TO 1LO2. O2 CURRENTLY >93%. PT DENIES DIFFICULTY BREATHING. OCC CONGESTED NONPRODUCTIVE COUGH. PE STUDY COMPLETE AND RESULTS PLACED IN CHART.
--- NOTE | 2021-04-13 11:07 | NUR ---
PT. SEEN BY DR. GARNICA, VERBAL ORDER RECEIVED TO START PT. ON ROOM AIR NOW & IF SHE CAN TOLERATE WELL WITH WNL O2 SAT, DR. GARNICA WILL DISCHARGE HIM TOMORROW.
--- NOTE | 2021-04-13 11:34 | NUR ---
NO RECORD OF VASCULAR ACCESS FOR ASSESSMENT NOTED, PT. HAS A LEFT AC G 20 SALINE LOCKED, C/D/I & FLUSHED WITH 10 CC SALINE.
--- NOTE | 2021-04-13 13:00 | NUR ---
Initial Interview with [facility] Community Audit Senior Associate 1. Who did you speak with? Spoke with patient 2. What is the patient's prior level of functions? Independent lives with two sons and [id number]. Patient lives in a four bedroom one story home. Patient was able to perform ADL's without much assistance. Home is handicapped accessible. Patient uses a cane when needed (has 2 to 3 canes). Patient self manages her medications. Family members in the home assist with housekeeping and cooking. 3. What is the patient's current living situation? Patient lives independently with 4. Is the patient and/or family able to provide transportation to and from doctor's appointments and pickup driver prescriptions? Yes, patient still drives 5. Does patient still drive? Yes 6. POA/PCP/NOK: NOK: Son Riki Boykin/PCP Dr. Echols 7. Discharge goals: Home -Home: NLT 04/15 -DME: TBD PTOT/RT -Medication Management: self-management -Preferred Pharmacy: July -Housekeeping need: family assists -Cooking: family assists 8. List barriers to discharge: None known at this time 9. Discharge Plan: Plan is to discharge home 10. PCP Follow up appointment: Will be scheduled within seven calendar days of discharge 11. [place]: No
--- NOTE | 2021-04-14 05:01 | NUR ---
PT IS IN BED AT THIS TIME WHERE SHE REMAINS MUCH OF THE NIGHT AND IS RESTING COMFORTABLY. BEING MONITORED FOR FOR HX OF RESPIRATORY FAILURE AND HAS EXHIBITED NO SIGNS OF RESPIRATORY DISTRESS. SHE CONTINUES TO BE ON RM AIR BUT BEING IS ON CONTINUOUS O2 SAT MONITORING. OVERALL CONDITION IS STABLE, VS AT ACCEPTABLE LIMIT, NO C/O PAIN AT THIS TIME. SHE IS ASSISTED WITH HER CARE AND ADLS, ASSISTED WITH BATHROOM AND TOILETING NEEDS. HER CALL LIGHT WAS PLACED NEAR HER AND WAS ENCOURAGED TO CALL FOR HELP WHEN ASSISTANCE IS NEEDED SHE IS MONITORED.
[2021-04-14] MEDS ORDERED: DEXA6 PO (13:08)
[2021-04-14 13:51] LABS: BASOPHILS PERCENT AUTO 0 % (0-2); EOSINOPHILS PERCENT AUTO 0 % (0-6); Hematocrit 39.9 % (33.0-51.0); Hemoglobin 13.6 g/dL (11.5-16.0); IMMATURE GRAN ABSOLUTE AUTO 0.01 K/mm3 (0.00-0.10); IMMATURE GRAN PERCENT AUTO 1 % (0-1); LYMPHOCYTES ABSOLUTE AUTO 0.51 K/mm3 (0.84-5.20); LYMPHOCYTES PERCENT AUTO 26 % (21-46); MONOCYTES ABSOLUTE AUTO 0.09 K/mm3 (0.16-1.47); MONOCYTES PERCENT AUTO 5 % (4-13); Mean Corpuscular HGB 34.8 pg (26.0-34.0); Mean Corpuscular HGB Conc 34.1 g/dL (31.5-36.5); Mean Corpuscular Volume 102 fL (80-100); Mean Platelet Volume 10.6 fL (9.1-12.4); NEUTROPHILS ABSOLUTE AUTO 1.38 K/mm3 (1.96-9.15); NEUTROPHILS PERCENT AUTO 69 % (41-73); Platelet Count 79 K/mm3 (150-400); Red Blood Cell Count 3.91 M/mm3 (3.80-5.20); White Blood Cell Count 1.99 K/mm3 (4.00-11.30)
[2021-04-14 14:12] LABS: Alanine Aminotransfer (ALT/SGP 25 U/L (12-78); Albumin, Blood 2.7 g/dL (3.4-5.0); Albumin/Globulin Ratio 0.8 (0.8-1.8); Alk Phos 63 U/L (50-136); Anion Gap 8 mmol/L (6-16); Aspartate Aminotrans (AST/SGOT 45 U/L (12-37); Bilirubin, Total 0.3 mg/dL (0.1-1.0); Blood Urea Nitrogen 26 mg/dL (8-24); Bun/Creatinine Ratio 34.8 (12.0-20.0); CO2, Blood 22 mmol/L (21-32); Calcium, Blood 8.8 mg/dL (8.5-10.1); Chloride, Blood 108 mmol/L (98-108); Creatinine, Blood 0.75 mg/dL (0.40-1.00); Globulin, Blood 3.2 g/dL (2.2-4.0); Glomerular Filtration Rate >60 (60-); Glucose, Blood 111 mg/dL (70-99); Potassium, Blood 4.5 mmol/L (3.5-5.5); Sodium, Blood 138 mmol/L (136-145); Total Protein, Blood 5.9 g/dL (6.4-8.2)
[2021-04-14] MEDS ORDERED: ALBU90OI INH (14:48)
--- NOTE | 2021-04-14 16:16 | NUR ---
DISCHARGE SUMMARY PT A/O X4 AND SBA IN THE ROOM. LUNG SOUNDS CLEAR BUT DIM T/O. SUPPLEMENTAL O2 PRN BUT THE PT HAS NOT NEEDED IT. FEELING FATIGUED BUT WELL ENOUGH TO DC HOME. IV DC'D WNL. PICKED UP BY SON. ADVISED TO INDEPENDENT [employer] PRODUCER HOME PULSE OX FROM PHARMACY.
--- NOTE | 2021-04-14 16:27 | NUR ---
Per Dr. Galvan discharge appropriate on today, 04/14/21. Spoke with patient and she is aware of discharge and does not oppose. Patient's daughter in law Yina ([phone]) provided transportation to residence. DME: patient has a walker and 2-3 canes. Transition of care will contact patient to schedule hospital PCP follow up; patient is COVID positive and will need a telehealth visit. Patient understands if any health concerns or medication management questions, she may contact her PCP; or if condition worsens go to Urgent Care. Patient states she has a good support network of family and friends. No barriers to discharge at this time.
--- NOTE | 2021-04-14 17:24 | NUR ---
[facility]'S [facility], ATTEMPTED TO CALL IN RX BUT NO ANSWER AFTER BEING ON HOLD FOR 20MINS.
== END 2021-04-14 16:12 | disposition home or self-care (01) | DRG 177 ==
LOC: ER 18:36 → SURS 23:49 → MEDS 23:49 → SURS 04-13 01:32
PROVIDERS: Emergency Medicine; Family Medicine; Internal Medicine; ADMIT Internal Medicine
PROC: 8E0ZXY6 Isolation (ICD-10-PCS; 2021-04-12)
PROC: XW0DXM6 Introduction of Baricitinib into Mouth and Pharynx, External Approach, New Technology Group 6 (ICD-10-PCS; principal; 2021-04-13)
PROC: 3E0DX3Z Introduction of Anti-inflammatory into Mouth and Pharynx, External Approach (ICD-10-PCS; 2021-04-13)
PROC: XW033E5 Introduction of Remdesivir Anti-infective into Peripheral Vein, Percutaneous Approach, New Technology Group 5 (ICD-10-PCS; 2021-04-13)
DX: U07.1 COVID-19 (principal); J12.82 Pneumonia due to coronavirus disease 2019; J96.01 Acute respiratory failure with hypoxia; E87.1 Hypo-osmolality and hyponatremia; J44.0 Chronic obstructive pulmonary disease with (acute) lower respiratory infection; J44.1 Chronic obstructive pulmonary disease with (acute) exacerbation; Z66 Do not resuscitate; D72.819 Decreased white blood cell count, unspecified; D69.6 Thrombocytopenia, unspecified; R79.1 Abnormal coagulation profile; K21.9 Gastro-esophageal reflux disease without esophagitis; E78.5 Hyperlipidemia, unspecified; I12.9 Hypertensive chronic kidney disease with stage 1 through stage 4 chronic kidney disease, or unspecified chronic kidney disease; N18.30 Chronic kidney disease, stage 3 unspecified; M81.0 Age-related osteoporosis without current pathological fracture; F17.210 Nicotine dependence, cigarettes, uncomplicated; Z96.641 Presence of right artificial hip joint; Z88.5 Allergy status to narcotic agent; Z79.899 Other long term (current) drug therapy; Z28.21 Immunization not carried out because of patient refusal; Z86.73 Personal history of transient ischemic attack (TIA), and cerebral infarction without residual deficits; Z98.890 Other specified postprocedural states; Z90.710 Acquired absence of both cervix and uterus; Z90.49 Acquired absence of other specified parts of digestive tract
CPT/HCPCS: 36415; 71045; 71260; 80053; 84484; 85025; 85379; 93005; 93010; 94640; 94762; 97110; 97161; 99285-25; A9270; C9399; J1644; J1650; J7030; Q9967

== ENCOUNTER 2021-06-09 14:19 | Emergency (ER) | payer MEDICARE, OTHER ==
[~2021-06-09] VITALS: Ht 152.4 cm; Wt 44.5 kg
[~2021-06-09 14:19] MED LIST changes: +ATOR40TA PO; +DEXA6 PO; +MELA3 PO
[2021-06-09 14:57] LABS: BASOPHILS ABSOLUTE AUTO 0.06 K/mm3 (0.00-0.23); BASOPHILS PERCENT AUTO 1 % (0-2); EOSINOPHILS ABSOLUTE AUTO 0.46 K/mm3 (0.00-0.68); EOSINOPHILS PERCENT AUTO 11 % (0-6); Hemoglobin 12.4 g/dL (11.5-16.0); IMMATURE GRAN ABSOLUTE AUTO 0.01 K/mm3 (0.00-0.10); IMMATURE GRAN PERCENT AUTO 0 % (0-1); LYMPHOCYTES ABSOLUTE AUTO 1.36 K/mm3 (0.84-5.20); LYMPHOCYTES PERCENT AUTO 33 % (21-46); MONOCYTES ABSOLUTE AUTO 0.51 K/mm3 (0.16-1.47); MONOCYTES PERCENT AUTO 12 % (4-13); Mean Corpuscular HGB 33.7 pg (26.0-34.0); Mean Corpuscular HGB Conc 33.5 g/dL (31.5-36.5); Mean Corpuscular Volume 101 fL (80-100); Mean Platelet Volume 10.3 fL (9.1-12.4); NEUTROPHILS ABSOLUTE AUTO 1.76 K/mm3 (1.96-9.15); NEUTROPHILS PERCENT AUTO 42 % (41-73); Platelet Count 192 K/mm3 (150-400); RDW Standard Deviation 51.8 fL (35.1-46.3); Red Blood Cell Count 3.68 M/mm3 (3.80-5.20); White Blood Cell Count 4.16 K/mm3 (4.00-11.30)
[2021-06-09 15:31] LABS: Alanine Aminotransfer (ALT/SGP 17 U/L (12-78); Albumin, Blood 3.1 g/dL (3.4-5.0); Alk Phos 81 U/L (50-136); Anion Gap 2 mmol/L (6-16); Aspartate Aminotrans (AST/SGOT 15 U/L (12-37); Bilirubin, Total 0.7 mg/dL (0.1-1.0); Blood Urea Nitrogen 9 mg/dL (8-24); Bun/Creatinine Ratio 10.9 (12.0-20.0); CO2, Blood 31 mmol/L (21-32); Calcium, Blood 10.2 mg/dL (8.5-10.1); Chloride, Blood 108 mmol/L (98-108); Creatinine, Blood 0.83 mg/dL (0.40-1.00); Globulin, Blood 3.1 g/dL (2.2-4.0); Glomerular Filtration Rate >60 (60-); Glucose, Blood 128 mg/dL (70-99); Potassium, Blood 2.8 mmol/L (3.5-5.5); Sodium, Blood 141 mmol/L (136-145); Total Protein, Blood 6.2 g/dL (6.4-8.2)
[2021-06-09 15:55] LABS: International Normalized Ratio 1.08; Prothrombin Time Results 11.3 Sec (9.7-11.5)
== END 2021-06-09 17:25 | disposition home or self-care (01) ==
LOC: ER 14:19
PROVIDERS: Physician Assistant
DX: R42 Dizziness and giddiness (principal); E87.6 Hypokalemia; I12.9 Hypertensive chronic kidney disease with stage 1 through stage 4 chronic kidney disease, or unspecified chronic kidney disease; N18.30 Chronic kidney disease, stage 3 unspecified; K21.9 Gastro-esophageal reflux disease without esophagitis; J44.9 Chronic obstructive pulmonary disease, unspecified; Z86.73 Personal history of transient ischemic attack (TIA), and cerebral infarction without residual deficits; Z86.16 Personal history of COVID-19; Z79.899 Other long term (current) drug therapy; Z87.891 Personal history of nicotine dependence; Z88.5 Allergy status to narcotic agent
CPT/HCPCS: 36415; 70450; 80053; 85025; 85610; 85730; 93005; 93010; 99284-25; A9270

== ENCOUNTER → 2021-07-29 | Outpatient (CLI) | payer MEDICARE, OTHER ==
[2021-07-30 12:38] LABS: Stool Occult Bld Immuno 1 Negative (NEGATIVE)
== END | disposition home or self-care (01) ==
LOC: LAB SHORT 08:20
PROVIDERS: Family Medicine
DX: Z12.11 Encounter for screening for malignant neoplasm of colon (principal)
CPT/HCPCS: G0328

== ENCOUNTER 2024-05-28 02:35 | Day surgery (SDC) | payer MEDICARE, OTHER ==
[2024-05-28] MEDS ORDERED: ZOLEDRONIC ACID/MANNITOL-WATER 100 ML IV SCH (06:00)
[2024-05-28 09:34] VITALS: BP 132/65
== END 2024-05-28 10:12 | disposition home or self-care (01) ==
LOC: ATC 02:35
DX: M81.0 Age-related osteoporosis without current pathological fracture (principal); E21.0 Primary hyperparathyroidism; E04.2 Nontoxic multinodular goiter; C34.91 Malignant neoplasm of unspecified part of right bronchus or lung; I25.10 Atherosclerotic heart disease of native coronary artery without angina pectoris; I12.9 Hypertensive chronic kidney disease with stage 1 through stage 4 chronic kidney disease, or unspecified chronic kidney disease; N18.31 Chronic kidney disease, stage 3a; I70.0 Atherosclerosis of aorta; J44.9 Chronic obstructive pulmonary disease, unspecified; K21.9 Gastro-esophageal reflux disease without esophagitis; F17.210 Nicotine dependence, cigarettes, uncomplicated; Z88.5 Allergy status to narcotic agent; Z79.899 Other long term (current) drug therapy
CPT/HCPCS: J3489

== ENCOUNTER 2024-12-22 09:21 | Observation (INO) | payer MEDICARE, OTHER ==
[~2024-12-22] VITALS: Ht 152.4 cm; Wt 40.5 kg
[~2024-12-22 09:21] MED LIST changes: +CEPHALEXIN125 MG/5 M; +DRAMAMINE25 M3; +FOSAMAX70 MG; +Heparin Sodium,Porcine 5,000 UNIT/0.5 ML SDV SC SCH; +KLOR-CON 1010 ME9; +MONT10T PO; +OXYB5; +VISBIOME 112.51 EACH PO
[2024-12-22] MEDS ORDERED: Ondansetron HCl 2 MG / ML 2ML Vial IV ONE ×2 (10:20→15:10)
[2024-12-22 10:39] LABS: BASOPHILS ABSOLUTE AUTO 0.08 K/mm3 (0.00-0.23); BASOPHILS PERCENT AUTO 1 % (0-2); EOSINOPHILS ABSOLUTE AUTO 0.15 K/mm3 (0.00-0.68); EOSINOPHILS PERCENT AUTO 1 % (0-6); Hematocrit 43.7 % (33.0-51.0); Hemoglobin 14.1 g/dL (11.5-16.0); IMMATURE GRAN ABSOLUTE AUTO 0.04 K/mm3 (0.00-0.10); IMMATURE GRAN PERCENT AUTO 0 % (0-1); LYMPHOCYTES ABSOLUTE AUTO 1.09 K/mm3 (0.84-5.20); LYMPHOCYTES PERCENT AUTO 8 % (21-46); MONOCYTES ABSOLUTE AUTO 0.57 K/mm3 (0.16-1.47); MONOCYTES PERCENT AUTO 4 % (4-13); Mean Corpuscular HGB Conc 32.3 g/dL (31.5-36.5); Mean Corpuscular Volume 92 fL (80-100); NEUTROPHILS ABSOLUTE AUTO 11.27 K/mm3 (1.96-9.15); NEUTROPHILS PERCENT AUTO 85 % (41-73); NRBC ABSOLUTE 0.00 K/mm3 (0.00-0.02); NRBC Auto 0.0 /100 WBC (0.0-0.2); Platelet Count 152 K/mm3 (150-400); RDW Coefficient Variation 13.8 % (11.7-14.2); RDW Standard Deviation 47.0 fL (35.1-46.3)
[2024-12-22 11:22] LABS: Alanine Aminotransfer (ALT/SGP 23.0 U/L (12-78); Albumin, Blood 3.6 g/dL (3.4-5.0); Albumin/Globulin Ratio 1.0 (0.8-1.8); Anion Gap 8.0 mmol/L (3-11); Aspartate Aminotrans (AST/SGOT 26.0 U/L (12-37); Bilirubin, Total 1.0 mg/dL (0.1-1.0); Blood Urea Nitrogen 24.0 mg/dL (8-24); CO2, Blood 28.0 mmol/L (21-32); Calcium, Blood 13.1 mg/dL (8.5-10.1); Chloride, Blood 107.0 mmol/L (98-108); Creatinine, Blood 1.15 mg/dL (0.40-1.00); Globulin, Blood 3.7 g/dL (2.2-4.0); Glucose, Blood 146.0 mg/dL (70-99); Potassium, Blood 3.2 mmol/L (3.5-5.5); Sodium, Blood 140.0 mmol/L (136-145); Total Protein, Blood 7.3 g/dL (6.4-8.2)
[2024-12-22] MEDS ORDERED: NS 1,000 ML IV SCH (11:35)
[2024-12-22 13:38] LABS: Source, Urine Voided
[2024-12-22 13:41] LABS: Bilirubin, Urine Neg (Neg); Color, Urine Yellow (P-Yellow); Glucose Qualitative, Urine Neg (Neg); Ketones, Urine Neg (Neg); Leukocyte Esterase, Urine Neg (Neg); Protein, Urine 1+ (Neg); Specific Gravity, Urine 1.015 (1.003-1.022); Urobilinogen, Urine NORM (Normal)
[2024-12-22 13:58] LABS: White Blood Cells, Urine 0-2 /hpf (0-5)
[2024-12-22 13:59] LABS: CORONAVIRUS COVID-19 AG Negative (NEGATIVE)
[2024-12-22] MEDS ORDERED: NS 500 ML IV SCH (15:10)
[2024-12-22 15:11] LABS: Magnesium, Blood 2.0 mg/dL (1.6-2.4); Phosphorus, Blood 1.9 mg/dL (2.5-4.9)
[2024-12-22 17:21] LABS: Source, Urine Clean Catch
[2024-12-22] MEDS ORDERED: Sodium Phosphate 15 MM in Dextrose 5% 500 ML IV STA (17:30)
[2024-12-22 17:42] LABS: Alanine Aminotransfer (ALT/SGP 23.0 U/L (12-78); Albumin, Blood 3.3 g/dL (3.4-5.0); Albumin/Globulin Ratio 1.0 (0.8-1.8); Anion Gap 4.0 mmol/L (3-11); Aspartate Aminotrans (AST/SGOT 27.0 U/L (12-37); Bilirubin, Total 0.7 mg/dL (0.1-1.0); Blood Urea Nitrogen 24.0 mg/dL (8-24); CO2, Blood 29.0 mmol/L (21-32); Calcium, Blood 11.7 mg/dL (8.5-10.1); Chloride, Blood 111.0 mmol/L (98-108); Creatinine, Blood 1.02 mg/dL (0.40-1.00); Globulin, Blood 3.4 g/dL (2.2-4.0); Glucose, Blood 122.0 mg/dL (70-99); Potassium, Blood 3.2 mmol/L (3.5-5.5); Sodium, Blood 141.0 mmol/L (136-145); Total Protein, Blood 6.7 g/dL (6.4-8.2)
[2024-12-22 17:45] LABS: Bilirubin, Urine Neg (Neg); Color, Urine Yellow (P-Yellow); Glucose Qualitative, Urine Neg (Neg); Ketones, Urine Neg (Neg); Leukocyte Esterase, Urine 1+ (Neg); Protein, Urine 1+ (Neg); Specific Gravity, Urine 1.020 (1.003-1.022); Urobilinogen, Urine NORM (Normal)
[2024-12-22] MEDS ORDERED: Albuterol HFA200 ACT/6.7 GM INH INH PRN (17:45)
[2024-12-22] MEDS ORDERED: CefTRIAXone Sodium 1,000 MG in NS 100 ML IV SCH (18:00)
[2024-12-22 23:56] VITALS: BP 108/61
[2024-12-23 04:36] VITALS: BP 121/68
--- NOTE | 2024-12-23 05:01 | NUR ---
SHIFT SUMMARY: PT AOX4 1PA TO THE BSC. CALLS APPROPRIATELY AND ABLE TO MAKE NEEDS KNOWN. TOLERATING PO INTAKE AND STATES TO BE FEELING BETTER. VSS STABLE. TOLERATING MEDICATIONS WELL. NO ACUTE OVERNIGHT EVENTS. PT DENIES CP OR SOB. PT IN BED SLEEPING, BED IN LOWEST POSITION, CALL LIGHT IN REACH. CONTINUING CARE.
[2024-12-23 06:51] LABS: BASOPHILS ABSOLUTE AUTO 0.03 K/mm3 (0.00-0.23); BASOPHILS PERCENT AUTO 0 % (0-2); EOSINOPHILS ABSOLUTE AUTO 0.03 K/mm3 (0.00-0.68); EOSINOPHILS PERCENT AUTO 0 % (0-6); Hematocrit 37.0 % (33.0-51.0); Hemoglobin 12.3 g/dL (11.5-16.0); IMMATURE GRAN ABSOLUTE AUTO 0.04 K/mm3 (0.00-0.10); IMMATURE GRAN PERCENT AUTO 0 % (0-1); LYMPHOCYTES ABSOLUTE AUTO 1.25 K/mm3 (0.84-5.20); LYMPHOCYTES PERCENT AUTO 12 % (21-46); MONOCYTES ABSOLUTE AUTO 0.53 K/mm3 (0.16-1.47); MONOCYTES PERCENT AUTO 5 % (4-13); Mean Corpuscular HGB Conc 33.2 g/dL (31.5-36.5); Mean Corpuscular Volume 91 fL (80-100); NEUTROPHILS ABSOLUTE AUTO 8.36 K/mm3 (1.96-9.15); NEUTROPHILS PERCENT AUTO 82 % (41-73); NRBC ABSOLUTE 0.00 K/mm3 (0.00-0.02); NRBC Auto 0.0 /100 WBC (0.0-0.2); Platelet Count 117 K/mm3 (150-400); RDW Coefficient Variation 13.9 % (11.7-14.2); RDW Standard Deviation 47.2 fL (35.1-46.3)
[2024-12-23 07:06] LABS: Alanine Aminotransfer (ALT/SGP 17.0 U/L (12-78); Albumin, Blood 2.9 g/dL (3.4-5.0); Albumin/Globulin Ratio 1.0 (0.8-1.8); Anion Gap 5.0 mmol/L (3-11); Aspartate Aminotrans (AST/SGOT 22.0 U/L (12-37); Bilirubin, Total 1.0 mg/dL (0.1-1.0); Blood Urea Nitrogen 19.0 mg/dL (8-24); CO2, Blood 30.0 mmol/L (21-32); Calcium, Blood 10.4 mg/dL (8.5-10.1); Chloride, Blood 108.0 mmol/L (98-108); Creatinine, Blood 1.07 mg/dL (0.40-1.00); Globulin, Blood 3.0 g/dL (2.2-4.0); Glucose, Blood 93.0 mg/dL (70-99); Phosphorus, Blood 2.2 mg/dL (2.5-4.9); Potassium, Blood 2.8 mmol/L (3.5-5.5); Sodium, Blood 140.0 mmol/L (136-145); Total Protein, Blood 5.9 g/dL (6.4-8.2)
[2024-12-23 07:18] VITALS: BP 121/60
[2024-12-23] MEDS ORDERED: NS 500 ML IV SCH (08:05)
[2024-12-23] MEDS ORDERED: Potassium Phosphate Dibasic 20 MM in Dextrose 5% 500 ML IV STA (08:12)
[2024-12-23] MEDS ORDERED: Enoxaparin 40 MG/0.4 ML SYR SC SCH (09:00)
[2024-12-23] MEDS ORDERED: Montelukast Sodium 5 MG Chew PO SCH (09:00)
[2024-12-23 11:36] VITALS: BP 93/65
[2024-12-23 13:04] LABS: Anion Gap 5.0 mmol/L (3-11); Blood Urea Nitrogen 18.0 mg/dL (8-24); CO2, Blood 30.0 mmol/L (21-32); Calcium, Blood 10.0 mg/dL (8.5-10.1); Chloride, Blood 106.0 mmol/L (98-108); Creatinine, Blood 1.04 mg/dL (0.40-1.00); Glucose, Blood 91.0 mg/dL (70-99); Phosphorus, Blood 2.7 mg/dL (2.5-4.9); Potassium, Blood 3.3 mmol/L (3.5-5.5); Sodium, Blood 138.0 mmol/L (136-145)
--- NOTE | 2024-12-23 15:27 | NUR ---
summary TRENDING LABS.POTASSIUM REPLETED WITH PO AND IV POTASSIUM PHOSPHATE FOR A POTASSIUM OF 2.8 THIS AM AND PHOS OF 2.2. DR. JACINTO ALSO ORDERED 1 TIME BAG OF 500 ML IV FLUIDS. PT COMPLETED BOTH NOW, PENDING LAB REDRAW TO TREND VALUES. PT A/OX4. ABLE TO MAKE NEEDS KNOWN. 1 ASSIST UP TO BSC, SLOW AND UNSTEADY ON FEET. INDEPENDENT AT BASELINE. 2L NC CONTINUOUS AND IS AT BASELINE. PT DENIES SOB/CHEST PAIN/NAUSEA. CONTINENT OF BOWEL AND BLADDER. WEARS PULL UP AT BASELINE FOR OCCASIONAL LEAKING. CALLING APPROPRIATELY. VERY PETITE, POOR APPETITE. FALL PRECAUTIONS IN PLACE.
[2024-12-23 16:36] VITALS: BP 108/57
[2024-12-23 17:08] LABS: Anion Gap 4.0 mmol/L (3-11); Blood Urea Nitrogen 18.0 mg/dL (8-24); CO2, Blood 29.0 mmol/L (21-32); Calcium, Blood 10.4 mg/dL (8.5-10.1); Chloride, Blood 107.0 mmol/L (98-108); Creatinine, Blood 1.01 mg/dL (0.40-1.00); Glucose, Blood 101.0 mg/dL (70-99); Phosphorus, Blood 3.0 mg/dL (2.5-4.9); Potassium, Blood 3.8 mmol/L (3.5-5.5); Sodium, Blood 136.0 mmol/L (136-145)
[2024-12-23] MEDS ORDERED: NS 250 ML IV PRN (17:10)
--- NOTE | 2024-12-23 19:28 | NUR ---
SUMMARY PT HAD POTASSIUM AND PHOSPHORUS REPLETED TODAY WITH A RECHECK NOW WNL. IV ANTIBX THERAPY. PT STATES SHE IS FEELING STRONGER. UP SBA TO BSC. CONTINENT. ABLE TO MAKE NEEDS KNOWN. BASELINE 2L NC.
[2024-12-23 19:32] VITALS: BP 123/79
[2024-12-23 23:43] VITALS: BP 109/76
--- NOTE | 2024-12-24 04:31 | NUR ---
SHIFT SUMMARY: PT AOX4 SBA/ 1PA TO THE BSC. SEEMS MUCH STRONGER THAN ON ADMISSION, STATES TO BE FEELING BETTER. TOLERATING MEDICATIONS WELL. STILL VERY FRAIL BUT PLEASANT AND COOPERATIVE IN CARE. CALLS APPROPRIATELY AND ABLE TO MAKE NEEDS KNOWN. VSS. NO ACUTE OVERNIGHT EVENTS. PT IN BED SLEEPING, BED IN LOWEST POSITION, CALL LIGHT IN REACH. CONTINUING CARE.
[2024-12-24 05:05] VITALS: BP 128/70
[2024-12-24 05:59] LABS: BASOPHILS ABSOLUTE AUTO 0.04 K/mm3 (0.00-0.23); BASOPHILS PERCENT AUTO 1 % (0-2); EOSINOPHILS ABSOLUTE AUTO 0.17 K/mm3 (0.00-0.68); EOSINOPHILS PERCENT AUTO 3 % (0-6); Hematocrit 34.3 % (33.0-51.0); Hemoglobin 11.4 g/dL (11.5-16.0); IMMATURE GRAN ABSOLUTE AUTO 0.01 K/mm3 (0.00-0.10); IMMATURE GRAN PERCENT AUTO 0 % (0-1); LYMPHOCYTES ABSOLUTE AUTO 1.23 K/mm3 (0.84-5.20); LYMPHOCYTES PERCENT AUTO 18 % (21-46); MONOCYTES ABSOLUTE AUTO 0.40 K/mm3 (0.16-1.47); MONOCYTES PERCENT AUTO 6 % (4-13); Mean Corpuscular HGB Conc 33.2 g/dL (31.5-36.5); Mean Corpuscular Volume 92 fL (80-100); NEUTROPHILS ABSOLUTE AUTO 4.86 K/mm3 (1.96-9.15); NEUTROPHILS PERCENT AUTO 73 % (41-73); NRBC ABSOLUTE 0.00 K/mm3 (0.00-0.02); NRBC Auto 0.0 /100 WBC (0.0-0.2); Platelet Count 106 K/mm3 (150-400); RDW Coefficient Variation 14.0 % (11.7-14.2); RDW Standard Deviation 46.7 fL (35.1-46.3)
[2024-12-24 06:20] LABS: Alanine Aminotransfer (ALT/SGP 17.0 U/L (12-78); Albumin, Blood 2.7 g/dL (3.4-5.0); Albumin/Globulin Ratio 0.9 (0.8-1.8); Anion Gap 5.0 mmol/L (3-11); Aspartate Aminotrans (AST/SGOT 20.0 U/L (12-37); Bilirubin, Total 0.8 mg/dL (0.1-1.0); Blood Urea Nitrogen 14.0 mg/dL (8-24); CO2, Blood 29.0 mmol/L (21-32); Calcium, Blood 10.0 mg/dL (8.5-10.1); Chloride, Blood 108.0 mmol/L (98-108); Creatinine, Blood 0.98 mg/dL (0.40-1.00); Globulin, Blood 3.0 g/dL (2.2-4.0); Glucose, Blood 83.0 mg/dL (70-99); Magnesium, Blood 1.5 mg/dL (1.6-2.4); Phosphorus, Blood 1.3 mg/dL (2.5-4.9); Potassium, Blood 3.3 mmol/L (3.5-5.5); Sodium, Blood 139.0 mmol/L (136-145); Total Protein, Blood 5.7 g/dL (6.4-8.2)
[2024-12-24 08:04] VITALS: BP 111/96
[2024-12-24] MEDS ORDERED: Potassium Phos/Sodium Phos 250 MG PACK PO ONE (09:00)
[2024-12-24] MEDS ORDERED: Sodium Phosphate 15 MM in Dextrose 5% 500 ML IV STA (09:08)
[2024-12-24 12:22] VITALS: BP 110/56
[2024-12-24 16:18] VITALS: BP 130/62
--- NOTE | 2024-12-24 17:03 | NUR ---
PATIENT INDEPENDENT TO BEDSIDE COMMODE. USING CALL LIGHT NEEDED. PATIENT ASKED FOR TYLENOL, IT IS LISTED AN ALLERGY WITH VICODIN BUT PATIENT REPORTED IT WAS THE VICODIN THAT MADE HER ITCH AND SHE WANTED THE TYLENOL STILL.
[2024-12-24 17:24] LABS: Magnesium, Blood 1.9 mg/dL (1.6-2.4)
[2024-12-24 17:25] LABS: Alanine Aminotransfer (ALT/SGP 19.0 U/L (12-78); Albumin, Blood 3.1 g/dL (3.4-5.0); Albumin/Globulin Ratio 1.0 (0.8-1.8); Anion Gap 4.0 mmol/L (3-11); Aspartate Aminotrans (AST/SGOT 23.0 U/L (12-37); Bilirubin, Total 0.6 mg/dL (0.1-1.0); Blood Urea Nitrogen 18.0 mg/dL (8-24); CO2, Blood 33.0 mmol/L (21-32); Calcium, Blood 10.4 mg/dL (8.5-10.1); Chloride, Blood 105.0 mmol/L (98-108); Creatinine, Blood 1.0 mg/dL (0.40-1.00); Globulin, Blood 3.2 g/dL (2.2-4.0); Glucose, Blood 97.0 mg/dL (70-99); Potassium, Blood 3.6 mmol/L (3.5-5.5); Sodium, Blood 138.0 mmol/L (136-145); Total Protein, Blood 6.3 g/dL (6.4-8.2)
[2024-12-24 17:54] LABS: Phosphorus, Blood 3.6 mg/dL (2.5-4.9)
[2024-12-24 19:32] VITALS: BP 127/62
[2024-12-24 23:22] VITALS: BP 136/71
[2024-12-25 03:35] VITALS: BP 141/74
--- NOTE | 2024-12-25 06:13 | NUR ---
PT RESTED ALL NIGHT. NO ACUTE CHANGES
[2024-12-25 07:10] LABS: BASOPHILS ABSOLUTE AUTO 0.05 K/mm3 (0.00-0.23); BASOPHILS PERCENT AUTO 1 % (0-2); EOSINOPHILS ABSOLUTE AUTO 0.30 K/mm3 (0.00-0.68); EOSINOPHILS PERCENT AUTO 7 % (0-6); Hematocrit 34.5 % (33.0-51.0); Hemoglobin 11.6 g/dL (11.5-16.0); IMMATURE GRAN ABSOLUTE AUTO 0.01 K/mm3 (0.00-0.10); IMMATURE GRAN PERCENT AUTO 0 % (0-1); LYMPHOCYTES ABSOLUTE AUTO 1.04 K/mm3 (0.84-5.20); LYMPHOCYTES PERCENT AUTO 23 % (21-46); MONOCYTES ABSOLUTE AUTO 0.34 K/mm3 (0.16-1.47); MONOCYTES PERCENT AUTO 8 % (4-13); Mean Corpuscular HGB Conc 33.6 g/dL (31.5-36.5); Mean Corpuscular Volume 90 fL (80-100); NEUTROPHILS ABSOLUTE AUTO 2.76 K/mm3 (1.96-9.15); NEUTROPHILS PERCENT AUTO 61 % (41-73); NRBC ABSOLUTE 0.00 K/mm3 (0.00-0.02); NRBC Auto 0.0 /100 WBC (0.0-0.2); Platelet Count 111 K/mm3 (150-400); RDW Coefficient Variation 13.9 % (11.7-14.2); RDW Standard Deviation 45.7 fL (35.1-46.3)
[2024-12-25 07:39] VITALS: BP 127/66
[2024-12-25 07:41] LABS: Alanine Aminotransfer (ALT/SGP 17.0 U/L (12-78); Albumin, Blood 2.8 g/dL (3.4-5.0); Albumin/Globulin Ratio 0.9 (0.8-1.8); Anion Gap 6.0 mmol/L (3-11); Aspartate Aminotrans (AST/SGOT 18.0 U/L (12-37); Bilirubin, Total 0.5 mg/dL (0.1-1.0); Blood Urea Nitrogen 13.0 mg/dL (8-24); CO2, Blood 29.0 mmol/L (21-32); Calcium, Blood 9.5 mg/dL (8.5-10.1); Chloride, Blood 107.0 mmol/L (98-108); Creatinine, Blood 0.85 mg/dL (0.40-1.00); Globulin, Blood 3.0 g/dL (2.2-4.0); Glucose, Blood 96.0 mg/dL (70-99); Magnesium, Blood 1.8 mg/dL (1.6-2.4); Phosphorus, Blood 1.9 mg/dL (2.5-4.9); Potassium, Blood 3.5 mmol/L (3.5-5.5); Sodium, Blood 138.0 mmol/L (136-145); Total Protein, Blood 5.8 g/dL (6.4-8.2)
[2024-12-25] MEDS ORDERED: Potassium Phos/Sodium Phos 250 MG PACK PO SCH (08:00)
[2024-12-25] MEDS ORDERED: Sodium Phosphate 10 MM in Dextrose 5% 250 ML IV STA (10:05)
[2024-12-25 15:15] VITALS: BP 111/67
[2024-12-25] MEDS ORDERED: POTASSIUM PHOSPH1 GM PO (16:55)
[2024-12-25] MEDS ORDERED: CEFP200 PO (16:56)
--- NOTE | 2024-12-25 17:48 | NUR ---
DISCHARGE NOTE MS NUNEZ WAS DISCHARGED HOME AT 1728HRS, ESCORTED WITH HER SON VIA W/C BY [place]. PIV AND TELEMETRY REMOVED PRIOR TO DISCHARGE. SHE AND HER SON VERBALISED UNDERSTANDING OF WRITTEN AND VERBAL DISCHARGE INSTRUCTIONS, DENIED AND NEW CONCERNS OR QUESTIONS PRIOR TO DISCHARGE. TELE SR/SB TODAY WITH NO CALLS FROM IP LITIGATION ASSOCIATE. UP INDEPENDENTLY TO THE BEDSIDE COMMODE, ASSISTED WITH A SHOWER. STEADY STEPS WALKING. SHE DENIES ANY RESP DISTRESS. NO NAUSEA.
[2024-12-25] MEDS ORDERED: Lactobacil 2-S.Thermo-Bifido 1 1 Cap PO SCH (21:00)
== END 2024-12-25 17:27 | disposition home or self-care (01) ==
LOC: ER 09:21 → MEDS 09:22
PROVIDERS: Emergency Medicine; ADMIT Internal Medicine
DX: E83.52 Hypercalcemia (principal); E83.39 Other disorders of phosphorus metabolism; E87.6 Hypokalemia; E83.42 Hypomagnesemia; I12.9 Hypertensive chronic kidney disease with stage 1 through stage 4 chronic kidney disease, or unspecified chronic kidney disease; N18.31 Chronic kidney disease, stage 3a; N17.9 Acute kidney failure, unspecified; J44.9 Chronic obstructive pulmonary disease, unspecified; J96.11 Chronic respiratory failure with hypoxia; I25.10 Atherosclerotic heart disease of native coronary artery without angina pectoris; K21.9 Gastro-esophageal reflux disease without esophagitis; M81.0 Age-related osteoporosis without current pathological fracture; E78.5 Hyperlipidemia, unspecified; F17.210 Nicotine dependence, cigarettes, uncomplicated; Z66 Do not resuscitate; Z79.899 Other long term (current) drug therapy; Z88.5 Allergy status to narcotic agent; Z88.6 Allergy status to analgesic agent; Z86.16 Personal history of COVID-19; Z90.49 Acquired absence of other specified parts of digestive tract; Z85.118 Personal history of other malignant neoplasm of bronchus and lung
CPT/HCPCS: 36415; 71045; 80048; 80053; 81001; 82330; 83690; 83735; 83970; 84100; 84484; 85025; 87077; 87086; 87186; 87428-QW; 93005; 93010; 94760; 96365; 96366; 96367; 96372; 96375; 96376; 99285-25; A9270; G0378; J0696; J1644; J2405; J7030; J7040; J7050; J7060

== ENCOUNTER 2025-03-27 06:30 | Day surgery (SDC) | payer MEDICARE, OTHER ==
[~2025-03-27 06:30] MED LIST changes: +ALPRAZOLAM0.5 M1 PO; +DRAMAMINE25 M3 PO; -Heparin Sodium,Porcine 5,000 UNIT/0.5 ML SDV SC SCH; +KLOR-CON 1010 ME9 PO; +OXYB5 PO; +POTASSIUM PHOSPH1 GM PO; +Vitamin D1000 UNI1 PO
[2025-03-27 11:26] VITALS: BP 151/90
== END 2025-03-27 11:52 | disposition home or self-care (01) ==
LOC: ATC 06:30
DX: M81.0 Age-related osteoporosis without current pathological fracture (principal); I25.10 Atherosclerotic heart disease of native coronary artery without angina pectoris; I70.0 Atherosclerosis of aorta; N18.30 Chronic kidney disease, stage 3 unspecified; I12.9 Hypertensive chronic kidney disease with stage 1 through stage 4 chronic kidney disease, or unspecified chronic kidney disease; E78.5 Hyperlipidemia, unspecified; E04.2 Nontoxic multinodular goiter; F17.210 Nicotine dependence, cigarettes, uncomplicated; Z88.8 Allergy status to other drugs, medicaments and biological substances; Z79.899 Other long term (current) drug therapy
CPT/HCPCS: 96365; J3489

== ENCOUNTER 2025-04-06 08:59 | Inpatient (IN) | payer MEDICARE, OTHER ==
[~2025-04-06] VITALS: Ht 152.4 cm; Wt 36.6 kg
[2025-04-06 09:26] LABS: BASOPHILS ABSOLUTE AUTO 0.06 K/mm3 (0.00-0.23); BASOPHILS PERCENT AUTO 1 % (0-2); EOSINOPHILS ABSOLUTE AUTO 0.43 K/mm3 (0.00-0.68); EOSINOPHILS PERCENT AUTO 9 % (0-6); Hematocrit 43.3 % (33.0-51.0); Hemoglobin 14.4 g/dL (11.5-16.0); IMMATURE GRAN ABSOLUTE AUTO 0.01 K/mm3 (0.00-0.10); IMMATURE GRAN PERCENT AUTO 0 % (0-1); LYMPHOCYTES ABSOLUTE AUTO 1.35 K/mm3 (0.84-5.20); LYMPHOCYTES PERCENT AUTO 29 % (21-46); MONOCYTES ABSOLUTE AUTO 0.37 K/mm3 (0.16-1.47); MONOCYTES PERCENT AUTO 8 % (4-13); Mean Corpuscular HGB Conc 33.3 g/dL (31.5-36.5); Mean Corpuscular Volume 95 fL (80-100); NEUTROPHILS ABSOLUTE AUTO 2.37 K/mm3 (1.96-9.15); NEUTROPHILS PERCENT AUTO 52 % (41-73); NRBC ABSOLUTE 0.00 K/mm3 (0.00-0.02); NRBC Auto 0.0 /100 WBC (0.0-0.2); Platelet Count 181 K/mm3 (150-400); RDW Coefficient Variation 14.0 % (11.7-14.2); RDW Standard Deviation 49.0 fL (35.1-46.3)
[2025-04-06] MEDS ORDERED: DiphenhydrAMINE HCl 50 MG/ML 1ML Vial IV ONE (09:30)
[2025-04-06] MEDS ORDERED: Metoclopramide HCl 5MG / ML 2ML Vial IV ONE (09:30)
[2025-04-06 09:49] LABS: Alanine Aminotransfer (ALT/SGP 25 U/L (12-78); Albumin, Blood 3.9 g/dL (3.4-5.0); Albumin/Globulin Ratio 1.1 (0.8-1.8); Anion Gap 5 mmol/L (3-11); Aspartate Aminotrans (AST/SGOT 24 U/L (12-37); Bilirubin, Total 0.6 mg/dL (0.1-1.0); Blood Urea Nitrogen 24 mg/dL (8-24); CO2, Blood 27 mmol/L (21-32); Calcium, Blood 11.2 mg/dL (8.5-10.1); Chloride, Blood 112 mmol/L (98-108); Creatinine, Blood 0.80 mg/dL (0.40-1.00); Ethanol (Alcohol), Blood, Med <3 mg/dL; Globulin, Blood 3.7 g/dL (2.2-4.0); Glucose, Blood 119 mg/dL (70-99); Potassium, Blood 3.8 mmol/L (3.5-5.5); Sodium, Blood 140 mmol/L (136-145); Total Protein, Blood 7.6 g/dL (6.4-8.2)
[2025-04-06] MEDS ORDERED: FLU VACC TS2025(65UP)/MF59C/PF 45 MCG/0.5 ML SYRINGE IM SCH (13:20)
[2025-04-06 16:41] VITALS: BP 171/75
--- NOTE | 2025-04-06 17:58 | NUR ---
PT ADMIT FROM ER. R SIDE DEFICITS, PURWICK IN PLACE, ORIENTED X4. BLANCHABLE REDNESS ON COCCYX. PLAN FOR MRI TONIGHT. PER PT, USES 2L NC AT NIGHT. BEDSIDE SWALLOW EVAL COMPLETED. DIET ORDER UPDATED. PT DENIES CHEST PAIN AND SOB. SON IS AT BEDSIDE.
[2025-04-06 19:44] VITALS: BP 149/89
[2025-04-07] MEDS ORDERED: Ondansetron HCl 2 MG / ML 2ML Vial IV PRN (02:40)
[2025-04-07] MEDS ORDERED: FentaNYL Citrate 50 MCG/ML 2 ML Injection IV PRN (02:45)
[2025-04-07 03:55] VITALS: BP 145/82
--- NOTE | 2025-04-07 05:13 | NUR ---
SHIFT SUMMARY: PT IS AOX4, COOPERATIVE, AND COMMUNICATES NEEDS. SHE IS WEAK ON THE RIGHT SIDE AND HAS BEEN BEDFAST THIS SHIFT. PUREWICK AND ATTENDS IN PLACE. PT ? AN OUT OF THIS WORLD HEADACHE AND NAUSEA. PROVIDER WAS NOTIFIED AND ORDERS FOR ANTIEMETICS AND PAIN RELIEF WERE PLACED. TREATED PT S PAIN AND NAUSEA PER THE EMAR AND PT STATED RELIEF OF SX. HER SON, JAIDEN, STOPPED IN TO VISIT HER BEFORE BEDTIME AND BROUGHT HER PAJAMAS AND INCONTINENCE BRIEFS FROM HOME. I WROTE HIS PHONE NUMBER ON THE WHITEBOARD. PT IS RESTING IN BED, HOB ELEVATED 30 , CALL LIGHT WITHIN REACH.
[2025-04-07 06:34] LABS: BASOPHILS ABSOLUTE AUTO 0.05 K/mm3 (0.00-0.23); BASOPHILS PERCENT AUTO 1 % (0-2); EOSINOPHILS ABSOLUTE AUTO 0.12 K/mm3 (0.00-0.68); EOSINOPHILS PERCENT AUTO 2 % (0-6); Hematocrit 44.5 % (33.0-51.0); Hemoglobin 15.1 g/dL (11.5-16.0); IMMATURE GRAN ABSOLUTE AUTO 0.02 K/mm3 (0.00-0.10); IMMATURE GRAN PERCENT AUTO 0 % (0-1); LYMPHOCYTES ABSOLUTE AUTO 0.92 K/mm3 (0.84-5.20); LYMPHOCYTES PERCENT AUTO 14 % (21-46); MONOCYTES ABSOLUTE AUTO 0.37 K/mm3 (0.16-1.47); MONOCYTES PERCENT AUTO 6 % (4-13); Mean Corpuscular HGB Conc 33.9 g/dL (31.5-36.5); Mean Corpuscular Volume 95 fL (80-100); NEUTROPHILS ABSOLUTE AUTO 5.15 K/mm3 (1.96-9.15); NEUTROPHILS PERCENT AUTO 78 % (41-73); NRBC ABSOLUTE 0.00 K/mm3 (0.00-0.02); NRBC Auto 0.0 /100 WBC (0.0-0.2); Platelet Count 188 K/mm3 (150-400); RDW Coefficient Variation 13.8 % (11.7-14.2); RDW Standard Deviation 48.0 fL (35.1-46.3)
[2025-04-07 07:06] LABS: Alanine Aminotransfer (ALT/SGP 23.0 U/L (12-78); Albumin, Blood 3.9 g/dL (3.4-5.0); Albumin/Globulin Ratio 1.0 (0.8-1.8); Anion Gap 6.0 mmol/L (3-11); Aspartate Aminotrans (AST/SGOT 19.0 U/L (12-37); Bilirubin, Total 0.7 mg/dL (0.1-1.0); Blood Urea Nitrogen 16.0 mg/dL (8-24); CO2, Blood 27.0 mmol/L (21-32); Calcium, Blood 10.5 mg/dL (8.5-10.1); Chloride, Blood 109.0 mmol/L (98-108); Creatinine, Blood 0.74 mg/dL (0.40-1.00); Globulin, Blood 3.9 g/dL (2.2-4.0); Glucose, Blood 123.0 mg/dL (70-99); Magnesium, Blood 2.1 mg/dL (1.6-2.4); Potassium, Blood 3.3 mmol/L (3.5-5.5); Sodium, Blood 139.0 mmol/L (136-145); Total Protein, Blood 7.8 g/dL (6.4-8.2)
[2025-04-07 08:03] VITALS: BP 137/93
[2025-04-07] MEDS ORDERED: Enoxaparin 30 MG/0.3 ML SYR SC SCH (09:00)
[2025-04-07] MEDS ORDERED: Cholecalciferol 1000 Unit Tablet (=25MCG) PO SCH (09:00)
[2025-04-07 15:51] VITALS: BP 140/86
[2025-04-07] MEDS ORDERED: Magnesium Hydroxide Conc 10 ML UDC PO PRN (18:40)
--- NOTE | 2025-04-07 19:21 | NUR ---
NON ACUTE CHANGES THIS SHIFT. DAUGHTER DOWN FROM [place] THIS SHIFT. PT REQUESTS ENOC-DAUGHTER BE THE PERSON TO NOTIFY. INFORMATION UPDATED IN SYSTEM. PT IS LIFT ASSIST. R SIDE DEF NO CHANGE FROM YESTERDAY. Q 2H TURNS.
[2025-04-07 19:25] VITALS: BP 168/99
[2025-04-08 03:53] VITALS: BP 159/96
--- NOTE | 2025-04-08 04:28 | NUR ---
SHIFT SUMMARY PATIENT IS ALERT AND ORIENTED. PATIENT HAS HAD NO ACUTE EVENTS THIS SHIFT. VITAL SIGNS REVIEWED. PATIENT HAS HAD NO COMPLAINTS OF SOB, NAUSEA, VOMITTING OR PAIN THIS SHIFT. PATIENT HAS REQUESTED HOME SLEEP MEDICATION, MEDICATED PER EMAR. PATIENT HAS BEEN SLEEPING MOST OF SHIFT. BED IN LOCKED AND LOWEST POSITION. CALL LIGHT IN PLACE.
--- NOTE | 2025-04-08 04:47 | NUR ---
SHIFT SUMMARY PATIENT IS ALERT AND ORIENTED. PATIENT HAS HAD NO ACUTE EVENTS THIS SHIFT. VITAL SIGNS REVIEWED. IV FLUIDS INFUSED ORDERED. CDIFF ISOLATION MAINTAINED ALL SHIFT. PATIENT HAS BEEN MEDICATED PER EMAR FOR TEMPERATURE. IV FLUIDS INFUSED ORDERED. PATIENT HAS BEEN HAVING FREQUENT LIQUID STOOLS. PATIENT HAS BEEN IND TO BSC. BED IN LOCKED AND LOWEST POSITION. CALL LIGHT IN PLACE.
[2025-04-08 06:12] LABS: Albumin, Blood 3.5 g/dL (3.4-5.0); Anion Gap 7 mmol/L (3-11); Blood Urea Nitrogen 15 mg/dL (8-24); CO2, Blood 26 mmol/L (21-32); Calcium, Blood 10.4 mg/dL (8.5-10.1); Chloride, Blood 110 mmol/L (98-108); Creatinine, Blood 0.76 mg/dL (0.40-1.00); Glucose, Blood 118 mg/dL (70-99); Magnesium, Blood 2.4 mg/dL (1.6-2.4); Phosphorus, Blood 1.8 mg/dL (2.5-4.9); Potassium, Blood 3.5 mmol/L (3.5-5.5); Sodium, Blood 139 mmol/L (136-145)
[2025-04-08 07:32] VITALS: BP 155/85
[2025-04-08] MEDS ORDERED: Multivitamins 1 Tab PO SCH (09:00)
[2025-04-08] MEDS ORDERED: Potassium Phosphate Dibasic 15 MM in Dextrose 5% 250 ML IV STA (14:57)
[2025-04-08 15:54] VITALS: BP 152/100
[2025-04-08] MEDS ORDERED: NS 250 ML IV PRN (15:55)
[2025-04-08 19:49] VITALS: BP 153/97
--- NOTE | 2025-04-08 20:12 | NUR ---
SHIFT SUMMARY: PATIENT A+O X2 AND IS AT TIMES ABLE TO MAKE NEEDS KNOWN IF FAMILY IS PRESENT IN ROOM. PATIENT AND FAMILY HAD DISCUSSION ON PLAN OF CARE. PLAN TO CONTINUE TREATMENT AT THIS TIME. FOLLOW-UP WITH PROVIDER LATER THIS WEEKS ON HOW WELL PATIENT HAS PROGRESSED. ADVANCED DIRECTIVE COMPLETED AND COPIES WERE PROVIDED TO SON. THIS NURSE DIRECTED TO HOLD ONTO THIS PAPERWORK AT THIS TIME D/T PALLIATIVE CARE NOT BEING PRESENT. WILL CONTINUE TREATMENT AT THIS TIME.
[2025-04-09 05:35] VITALS: BP 139/82
[2025-04-09 06:49] LABS: BASOPHILS ABSOLUTE AUTO 0.03 K/mm3 (0.00-0.23); BASOPHILS PERCENT AUTO 0 % (0-2); EOSINOPHILS ABSOLUTE AUTO 0.01 K/mm3 (0.00-0.68); EOSINOPHILS PERCENT AUTO 0 % (0-6); Hematocrit 44.7 % (33.0-51.0); Hemoglobin 14.9 g/dL (11.5-16.0); IMMATURE GRAN ABSOLUTE AUTO 0.03 K/mm3 (0.00-0.10); IMMATURE GRAN PERCENT AUTO 0 % (0-1); LYMPHOCYTES ABSOLUTE AUTO 1.05 K/mm3 (0.84-5.20); LYMPHOCYTES PERCENT AUTO 12 % (21-46); MONOCYTES ABSOLUTE AUTO 0.85 K/mm3 (0.16-1.47); MONOCYTES PERCENT AUTO 10 % (4-13); Mean Corpuscular HGB Conc 33.3 g/dL (31.5-36.5); Mean Corpuscular Volume 94 fL (80-100); NEUTROPHILS ABSOLUTE AUTO 6.79 K/mm3 (1.96-9.15); NEUTROPHILS PERCENT AUTO 78 % (41-73); NRBC ABSOLUTE 0.00 K/mm3 (0.00-0.02); NRBC Auto 0.0 /100 WBC (0.0-0.2); Platelet Count 165 K/mm3 (150-400); RDW Coefficient Variation 13.9 % (11.7-14.2); RDW Standard Deviation 48.1 fL (35.1-46.3)
[2025-04-09 07:08] LABS: Alanine Aminotransfer (ALT/SGP 20.0 U/L (12-78); Albumin, Blood 3.6 g/dL (3.4-5.0); Albumin/Globulin Ratio 0.9 (0.8-1.8); Anion Gap 5.0 mmol/L (3-11); Aspartate Aminotrans (AST/SGOT 18.0 U/L (12-37); Bilirubin, Total 1.2 mg/dL (0.1-1.0); Blood Urea Nitrogen 21.0 mg/dL (8-24); CO2, Blood 30.0 mmol/L (21-32); Calcium, Blood 10.2 mg/dL (8.5-10.1); Chloride, Blood 111.0 mmol/L (98-108); Creatinine, Blood 0.73 mg/dL (0.40-1.00); Globulin, Blood 4.0 g/dL (2.2-4.0); Glucose, Blood 132.0 mg/dL (70-99); Magnesium, Blood 2.3 mg/dL (1.6-2.4); Phosphorus, Blood 2.0 mg/dL (2.5-4.9); Potassium, Blood 3.5 mmol/L (3.5-5.5); Sodium, Blood 142.0 mmol/L (136-145); Total Protein, Blood 7.6 g/dL (6.4-8.2)
[2025-04-09 07:24] VITALS: BP 150/83
--- NOTE | 2025-04-09 08:06 | NUR ---
SHIFT SUMMARY PATIENT SLEPT T/O SHIFT. TOOK MEDICATIONS WITH APPLESAUCE PER OTHER RN, WAS AT BEDSIDE, HAD SIX BEAT OF VTACH, CALL LIGHT WITHIN REACH, NO DISTRESS NOTED.
[2025-04-09 15:52] VITALS: BP 138/84
--- NOTE | 2025-04-09 17:40 | NUR ---
END OF SHIFT PLAN FOR PT TO DISCHARGE TOMORROW ON HOSPICE. PT HAD LOTS OF FAMILY VISIT AND AT BEDSIDE AND PERFORMING A LOT OF HER ADLS. PT CONT TO BE REPOSITIONED AT LEAST EVERY 2 HOURS, WITH PILLOWS PROTECTING ELKE PROMINENCES AND KEEPING HEELS FLOATED. NO PRN NEEDED FOR PAIN. DENIES ANY SHORTNESS OF BREATH, BUT DOES NEED FREQUENT ORAL CARE PER REQUEST DUE TO DRY MOUTH. PT UNABLE TO USE MOUTH SWABS INDEPENDENTLY TOWARDS END OF SHIFT, SHE PLACES THE SWAB IN HER MOUTH BACKWARDS, BUT WAS ABLE TO DO THIS INDEPENDENTLY THIS AM. PT VERY SOFT SPOKEN BUT ABLE TO MAKE NEEDS KNOWN. PTS DIET WAS CHANGED TO PUREE WITH NECTOR THICK FLUIDS, MEDS ARE CRUSHED IN PUREE, PT ABLE TO SWALLOW WITHOUT ANY NOTED DIFFICULTY OR COUGHING.
[2025-04-09 19:41] VITALS: BP 139/88
[2025-04-10 06:10] VITALS: BP 151/90
[2025-04-10 06:11] LABS: Magnesium, Blood 2.7 mg/dL (1.6-2.4); Phosphorus, Blood 1.7 mg/dL (2.5-4.9)
[2025-04-10 07:36] VITALS: BP 157/89
--- NOTE | 2025-04-10 08:49 | NUR ---
SHIFT SUMMARY PATIENT SLEPT T/O SHIFT, FAMILY AT BED SIDE. NO DISTRESS NOTED. BED AT LOWEST LEVEL, REPOSITIONED AND CHANGED THROUGHOUT. CHARGE NURSE TALKED TO FAMILY ABOUT THE POTENTIAL DC PLANS THAT MIGHT HAPPEN DURING HER STAY HERE.
[2025-04-10 16:09] VITALS: BP 135/87
--- NOTE | 2025-04-10 16:47 | NUR ---
DAY SHIFT SUMMARY: PATIENT A/OX2-3, PLEASANT AND COOPERATIVE c CARE, R SIDED FLACCID. PATIENT DENIES CP/PRESSURE, SOB, N/V AND DIZZINESS. PATIENT ON 2L O2 VIA NC, SATTING 97-99%. PATIENT HAS POOR APPETITE, INCONTINENT OF BLADDER, ATTENDS IN PLACE AND CHANGED PRN. Q2 TURN AND ORAL CARE. FAMILY AT BEDSIDE T/O SHIFT AND SPOKE TO DR. CHRISTIE silva PLAN OF CARE. PATIENT PLAN TO DISCHARGE ON HOSPICE CARE TOMORROW. VITAL SIGNS REVIEWED. BED ALARM ON FOR SAFETY. CALL LIGHT IN REACH.
[2025-04-10 20:05] VITALS: BP 113/73
--- NOTE | 2025-04-10 21:25 | NUR ---
HOSPITALIST CONTACT PT C/O OF SEVERE HEADACHE AND REQUESTING STRONGER PAIN RELIEF THAN TYLENOL. CALL TO HOSPITALIST AND SPOKE TO DR HAWK. ORDER FOR OXY 5-10MG Q4 PRN. HOWEVER, THIS RN DIDN'T REALIZE PT ALLERGY TO HYDROCODONE--CAUSES ITCHING. PT UNABLE TO VERBALIZE HOW SEVERE ALLERGY IS. DID NOT PLACE ORDER FOR MEDICATION DUE TO ALLERGY. PT HAS FENTANYL. OPTED TO GIVE 25MCG OF FENTANYL W/TYLENOL TO TX HEADACHE.
[2025-04-11 02:50] VITALS: BP 125/74
--- NOTE | 2025-04-11 04:41 | NUR ---
Shift Summary: Pt. awake and is appropriately responding by nodding or shaking her head in response to questions, pt. attempting to verbally respond however she is having a difficult time in doing so. Her respirations are non-labored, lung sounds (+) for low-pitched but audible rhonchi x all bases, nasal O2 @ 2 LPM maintained at all times, SPO2 remains >90% (R) side completely flaccid, and denies any sensation to tactile asessment performed by RN; all her VS are within her baseline limits, she denies any acute pain/discomfort when questioned directly by RN. T&P q2H & PRN by staff, all comfort & safety measures maintained by staff; all her scheduled meds administered and taken well by pt. whole & mixed in apple sauce. She is calm and is resting with her call burch in reach & her daughter spent entire night at her bedside. Staff will cont. to closely monitor the pt.
[2025-04-11 07:43] VITALS: BP 148/79
[2025-04-11] MEDS ORDERED: ROXANOL PO (10:36)
--- NOTE | 2025-04-11 13:43 | NUR ---
DAY SHIFT/DISCHARGE SUMMARY: PATIENT ALERT AND ORIENTED, NON-VERBAL, NODE HER HEAD TO ANSWER QUESTIONS, STILL R SIDED FLACCID AND NO SENSATION TO AFFECTED SITE. PATIENT DENIES HEADACHE THIS SHIFT. RECEIVED SCHEDULED MEDS PER EMAR. VITAL SIGNS REVIEWED. PIV DC'D PATIENT DISCHARGE HOME ON HOSPICE THROUGH [facility]. DISCHARGE INSTRUCTIONS PACKET INCLUDING HARD SCRIPTS OF ROXANOL GIVEN TO DAUGHTER (ENOC). PATIENT AND DAUGHTER (ENOC) EDUCATED ON ADMITTING DX'S OF CVA, HOSPICE/END OF LIFE CARE, NEW RX AND TO COORDINATE c HOSPICE NURSE/STAFF. PATIENT NOODED HER HEAD AND DAUGHTER VERBALIZED UNDERSTANDING c NO FURTHER QUESTIONS. ALL PERSONAL BELONGINGS WERE SENT c DAUGHTER. PATIENT LEFT THE ROOM VIA GURNEY AT 1340 TO HOME.
== END 2025-04-11 13:44 | disposition hospice, home (50) | DRG 65 ==
LOC: ER 08:59 → MEDS 13:16 → ENPENDDIS 04-10 13:28 → MEDS 04-11 13:44
PROVIDERS: Student in an Organized Health Care Education/Training Program; ADMIT Family Medicine
DX: I63.231 Cerebral infarction due to unspecified occlusion or stenosis of right carotid arteries (principal); E46 Unspecified protein-calorie malnutrition; G81.91 Hemiplegia, unspecified affecting right dominant side; Z68.1 Body mass index [BMI] 19.9 or less, adult; R47.81 Slurred speech; R29.810 Facial weakness; J44.9 Chronic obstructive pulmonary disease, unspecified; I12.9 Hypertensive chronic kidney disease with stage 1 through stage 4 chronic kidney disease, or unspecified chronic kidney disease; N18.30 Chronic kidney disease, stage 3 unspecified; E78.5 Hyperlipidemia, unspecified; K21.9 Gastro-esophageal reflux disease without esophagitis; R47.1 Dysarthria and anarthria; R40.0 Somnolence; R13.10 Dysphagia, unspecified; R29.704 NIHSS score 4; M81.0 Age-related osteoporosis without current pathological fracture; F17.210 Nicotine dependence, cigarettes, uncomplicated; Z23 Encounter for immunization; Z85.118 Personal history of other malignant neoplasm of bronchus and lung; Z87.81 Personal history of (healed) traumatic fracture; Z86.79 Personal history of other diseases of the circulatory system; Z98.890 Other specified postprocedural states; Z87.440 Personal history of urinary (tract) infections; Z88.8 Allergy status to other drugs, medicaments and biological substances; Z88.5 Allergy status to narcotic agent; Z79.899 Other long term (current) drug therapy; Z86.16 Personal history of COVID-19; Z87.01 Personal history of pneumonia (recurrent); Z90.49 Acquired absence of other specified parts of digestive tract; Z90.710 Acquired absence of both cervix and uterus; Z90.722 Acquired absence of ovaries, bilateral
CPT/HCPCS: 36415; 70450; 70496; 70498; 70551; 80053; 80069; 80320; 82330; 83735; 84100; 85025; 85730; 92526; 92610; 93005; 93010; 96374-59; 96375-59; 97110; 97112; 97162; 97165; 97530; 97535; 99285-25; A6590; A9270; J1200; J1650; J2405; J2765; J3010; J7050; J7060; Q9967